=== PATIENT | female | born 1960 | race Caucasian/White ===

== ENCOUNTER → 2017-02-25 | Outpatient (CLI) | payer OTHER ==
[2017-02-25 12:18] LABS: BASO % 0.4 %; BASO ABS # 0.03 K/uL (0-0.2); COMPLETE YES; EOS % 1.7 %; HEMATOCRIT 38.1 % (37-47); IG% 0.1 %; LYMPH % 32.5 %; LYMPH ABS # 2.35 K/uL (1.2-3.4); MEAN CELL VOLUME 89.2 fL (80-100); MEAN CORPUSCULAR HEMOGLOBIN 30.2 pg (25-34); MEAN CORPUSCULAR HGB CONC 33.9 g/dl (32-36); MEAN PLATELET VOLUME 10.7 fL (7.4-10.4); MONO % 9.7 %; NEUT % 55.6 %; PLATELET COUNT 256 K/uL (130-400); RED BLOOD COUNT 4.27 M/uL (4.2-5.4); WHITE BLOOD COUNT 7.24 K/uL (4.8-10.8)
[2017-02-25 12:57] LABS: ALT/SGPT 39 U/L (12-78); AST/SGOT 18 U/L (15-37); BLOOD UREA NITROGEN 20 mg/dl (7-18); BUN/CREATININE RATIO 25.7 (10-20); CALCIUM 9.3 mg/dl (8.5-10.1); CARBON DIOXIDE 31 mmol/L (21-32); CHLORIDE 104 mmol/L (98-107); CREATININE 0.76 mg/dl (0.60-1.20); GLUCOSE 93 mg/dl (70-99); SODIUM 141 mmol/L (136-145)
[2017-02-25 13:08] LABS: ALB/GLOB RATIO 0.9 (0.9-2); ALKALINE PHOSPHATASE 80 U/L (45-117); CHOLESTEROL 199 mg/dl (0-200); CHOLESTEROL/HDL RATIO 4.1; HDL CHOLESTEROL 49 mg/dl; LDL CHOLESTEROL CALCULATED 107 mg/dl; THYROID STIMULATING HORMONE 0.434 uIu/ml (0.300-4.500); TRIGLYCERIDES 216 mg/dl (0-150); VERY LOW DENSITY LIPOPROT CALC 43 mg/dl
[2017-02-25 13:27] LABS: ESTIMATED AVERAGE GLUCOSE 128 mg/dl; HA1C FLAG Normal (Normal)
== END | disposition home or self-care (01) ==
LOC: C.LAB 11:45
PROVIDERS: ATTEND Internal Medicine
DX: E78.5 Hyperlipidemia, unspecified (principal)

== ENCOUNTER → 2017-02-28 | Outpatient (CLI) | payer OTHER ==
--- NOTE | 2017-03-02 17:08 | POLYSOMNOGRAPH REPORT ---
CLINICAL DATA: A 56-year-old female with BMI of 43, referred by Dr. Mainor Chowdary with symptoms of loud snoring and intermittent apnea. She does have fatigue. She is obese and has hypertension. On the evening of 02/28/2017, a home sleep apnea test was performed using a Porter + Sail type 3 monitor. RECORDING RESULTS: Total recording time was 10 hours. The patient's estimated sleep time and patient monitoring time was 8.6 hours. RESPIRATORY DATA: Mild sleep apnea was documented. The PRASHANT was 9.5. There were 8 obstructive and 1 central apneic episodes recorded. There were 73 hypopneic episodes. The longest respiratory event was 36 seconds. OXIMETRY DATA: Nocturnal hypoxemia was seen. The oxygen nik was 78%. Mean saturation was 92%. Time below 89% was 26 minutes. HEART RATE DATA: Heart rates ranged from 45-83 beats per minute. SNORING DATA: Loud snoring was recorded throughout the night. ART GILDER'S COMMENTS: The patient stated she slept off and on during the test; snoring was present throughout. Hypopneas and apneas were seen clustered in 2 episodes at 10:22-11:22 p.m. and at 3:30-4:30 a.m. These may have been periods of REM sleep. IMPRESSION: Mild sleep apnea/hypopnea with an respiratory event index of 9.5 with nocturnal hypoxemia. RECOMMENDATIONS: The patient may benefit from weight loss, use of an oral appliance, use of auto CPAP, or a repeat sleep study with CPAP titration. Clinical correlation is needed. [facility]
== END | disposition home or self-care (01) ==
LOC: C.NEUR 08:54
PROVIDERS: ATTEND Internal Medicine
DX: G47.33 Obstructive sleep apnea (adult) (pediatric) (principal)

== ENCOUNTER → 2017-12-18 | Outpatient (CLI) | payer OTHER ==
[2017-12-18 14:41] LABS: ALBUMIN 3.8 gm/dl (3.4-5.0); ALT/SGPT 35 U/L (12-78); AST/SGOT 17 U/L (15-37); BLOOD UREA NITROGEN 17 mg/dl (7-18); CALCIUM 9.6 mg/dl (8.5-10.1); CARBON DIOXIDE 29 mmol/L (21-32); CREATININE 0.87 mg/dl (0.60-1.20); GLUCOSE 108 mg/dl (70-99); POTASSIUM 4.1 mmol/L (3.5-5.1); SODIUM 139 mmol/L (136-145)
[2017-12-18 14:49] LABS: ALKALINE PHOSPHATASE 71 U/L (45-117); CHOLESTEROL 184 mg/dl (0-200); LDL CHOLESTEROL CALCULATED 100 mg/dl; TOTAL PROTEIN 7.9 gm/dl (6.4-8.2)
== END | disposition home or self-care (01) ==
LOC: C.LABMFLN 07:45
PROVIDERS: ATTEND Family Medicine
DX: R73.03 Prediabetes (principal); E78.5 Hyperlipidemia, unspecified; E03.9 Hypothyroidism, unspecified

== ENCOUNTER 2024-09-10 07:04 | Inpatient (IN) ==
--- NOTE | 2024-09-10 07:18 | Emergency Department Note ---
History of Present Illness General Chief complaint: Abdominal Pain Stated complaint: N/V, ABD PAIN Time Seen by Provider: 09/10/24 07:10 History of Present Illness Maximum Pain Intensity: 9 This is a 64-year-old female that presents to the emergency department via private vehicle with complaints of "lower abdominal pain". The patient notes that for the past 12 hours she has been experiencing lower abdominal pain. It is severe in nature. Current pain 9/10 and constant. She notes associated dry heaving. No fever. She notes the pain is across the lower abdomen. It is not favored to be on 1 side or the other. She states that she is able to lay on her left side but notes severe pain when she lays on her back or on her right side. Review of the EMR reveals patient does have a history of gastric bypass surgery, cholecystectomy, hysterectomy. Patient denies any urinary symptoms. Patient did not take any of her regular medications this morning. Home Medications Medication Instructions Recorded Confirmed Type albuterol sulfate 90 mcg/actuation 2 puffs inhalation Q4H PRN sob 01/08/20 09/10/24 History aerosol inhaler cetirizine 10 mg tablet (Zyrtec) 20 mg PO BID PRN allergies 04/25/23 09/10/24 History bupropion HCl 150 mg tablet,12 hr See Rx Instructions PO BID #270 ea 07/16/24 09/10/24 Rx sustained-release cyanocobalamin (vitamin B-12) 1,000 mcg IM Q3MO 07/16/24 09/10/24 History 1,000 mcg/mL injection solution naltrexone 50 mg tablet 25 mg PO BID 07/16/24 09/10/24 History fluticasone propionate 50 2 spray intranasal DAILY 09/10/24 09/10/24 History mcg/actuation nasal spray,suspension levothyroxine 175 mcg tablet 175 mcg PO DAILY 09/10/24 09/10/24 History rizatriptan 10 mg disintegrating 10 mg PO UD PRN Migraine Headache 09/10/24 09/10/24 History tablet Allergies Allergy/AdvReac Type Severity Reaction Status Date / Time clarithromycin [From Biaxin] Allergy Verified 07/16/24 15:52 codeine Allergy Verified 07/16/24 15:52 fluoxetine [From Prozac] Allergy Verified 07/16/24 15:52 sertraline [From Zoloft] Allergy Verified 07/16/24 15:52 Bbkrboy-FUU-BlJ Reductase Allergy Verified 07/16/24 15:52 Inhibitor [Zfwuhst-Bqy-Pjj Reductase Inhibitor] Past Med/Surg History Problem List (Updated 09/10/24 @ 09:55 by Eliu Correa PA-C) History of Terrence-en-Y gastric bypass (Acute) Small bowel obstruction (Acute) Cervical radicular pain Contact dermatitis Thoracic arthritis Left-sided chest pain Posterior chest pain Status post gastric bypass for obesity Angle-closure glaucoma, moderate stage (Acute) Arthritis of multiple sites (Acute) Asthma (Acute) Hypothyroidism (Acute) Migraine headache (Acute) Urticaria (Acute) History of sinus surgery Medical History Barretts esophagus Resolved s/p RYGB Essential hypertension Resolved s/p RYGB Gastroesophageal reflux disease Resolved s/p RYGB Hyperlipidemia Resolved s/p RYGB History of prediabetes Resolved s/p RYGB Surgical History History of hysterectomy History of cholecystectomy Family History Mother Coronary heart disease Diabetes Hypertension Father Hypertension Myocardial infarction Prostate cancer Sister Hypertension Denies family history of Ovarian cancer Breast cancer Lung cancer Colorectal cancer Social History Smoking Status: Former smoker Tobacco Type: Cigarettes Age Started Using Tobacco: 21; Age Quit Using Tobacco: 41; Cigarettes Per Day: 0.5 a week; Second Hand Exposure: No; Do You Dip or Chew Tobacco: No; Hx Alcohol Use: No Hx Substance Use: No Preferred Language: Omani Communication Ability: Effective Visual Impairment: Limited Hearing Ability: Normal Physiotherapist'S Assistant Required: No Beliefs That Will Affect Care: None marital status: Current Living Situation: Spouse current occupational status: employed How many Children do You have: 1 Other Information That Helps Us Care for You: No Feels Safe at Home: Yes Safety Concerns: Feels Safe At This Time Childhood Exposure to Second-Hand Smoke: Yes Diet: regular caffeine: Yes (coffee on saturdays and sundays ) Dental Care, Regularly: Yes Physical Activity Frequency: Daily Physical Activity Frequency Comment: WALK Seatbelt Use: always Sunscreen Use: Yes Assistive Devices: Glasses Review of Systems A total of 10 systems reviewed and were otherwise negative Physical Exam Vital Signs Vital Signs - 24 hr 09/10/24 07:06 09/10/24 08:06 09/10/24 08:23 Temperature 36.5 C Temperature Source Temporal Artery Scan Pulse Rate 76 58 L 57 L Pulse Rate from SpO2 Sensor 57 L Respiratory Rate 14 20 Blood Pressure 138/87 Blood Pressure Mean 104 Pulse Oximetry 99 99 Oxygen Delivery Method Room Air Room Air Sepsis New/Unexplained Change in Mental Status No Sepsis Action Taken by Nursing No Action Required 09/10/24 08:30 09/10/24 08:41 Temperature Temperature Source Pulse Rate 57 L Pulse Rate from SpO2 Sensor Respiratory Rate 19 Blood Pressure 143/83 H Blood Pressure Mean 108 Pulse Oximetry Oxygen Delivery Method Sepsis New/Unexplained Change in Mental Status Sepsis Action Taken by Nursing VITAL SIGNS - Vital signs and nursing notes were reviewed. Stable and afebrile. GENERAL -64-year-old female appearing her stated age who is in no acute distress but appears to be in pain. Communicates well with provider and answers questions appropriately. SKIN - Without rashes. No meningeal or petechial rash. HEAD - NC/AT. EYES - PERRL with EOMI bilaterally. Sclera anicteric. NECK - Neck with FROM. No nuchal rigidity. LUNGS - CTA CARDIAC - RRR ABDOMEN - Abdominal contour normal without pulsations or visible masses. BS normoactive all four quadrants. There is lower abdominal tenderness to palpation. No palpable masses, hepatosplenomegaly, or ascites noted. EXTREMITIES - No clubbing or peripheral cyanosis. +5/5 strength noted in UE/LE bilaterally. NEUROLOGIC - Cranial nerves grossly intact. PSYCH -alert, oriented and pleasant on exam Course Administered Medications Sodium Chloride (Nss) 1,000 mls @ 100 mls/hr IV .Q10H STA Stop: 09/10/24 18:33 Last Admin: 09/10/24 09:10 Dose: 125 mls/hr Documented By: MORENO Ondansetron HCl (Ondansetron Inj 2 Mg/Ml 2 Ml Vial) 4 mg IV Q4H PRN PRN Reason: Nausea Stop: 10/10/24 10:29 Last Admin: 09/10/24 10:54 Dose: 4 mg Documented By: SJR Discontinued Medications Acetaminophen (Ofirmev) 1,000 mg in 100 mls @ 400 mls/hr IV NOW STA Stop: 09/10/24 08:57 Last Infusion: 09/10/24 09:11 Dose: Infused Documented By: Admin: 09/10/24 08:47 Dose: 400 mls/hr Documented By: MORENO Ioversol (Optiray 320 100ml) 94 ml IV ONCE ONE Stop: 09/10/24 07:56 Last Admin: 09/10/24 07:55 Dose: 94 ml Documented By: REID Morphine Sulfate (Morphine Sulfate 4 Mg/Ml 1 Ml Carp\\Vial) 4 mg IV NOW STA Stop: 09/10/24 07:25 Last Admin: 09/10/24 07:29 Dose: 4 mg Documented By: MORENO Ondansetron HCl (Ondansetron Inj 2 Mg/Ml 2 Ml Vial) 4 mg IV NOW STA Stop: 09/10/24 07:18 Last Admin: 09/10/24 07:29 Dose: 4 mg Documented By: MORENO Medical Decision Making Laboratory Data 09/10/24 07:35 09/10/24 07:35 Lab Results 09/10/24 09/10/24 09/10/24 Range/Units 07:35 07:37 08:40 WBC 10.22 (4.8-10.8) K/ul RBC 4.29 (4.20-5.40) M/uL Hgb 13.2 (12.0-16.0) g/dl POC Hgb 13.6 (12.0-16.0) g/dl Hct 37.6 (37.0-47.0) % POC Hct 40 (37-47) % MCV 87.6 (80.0-100.0) fL MCH 30.8 (25.0-34.0) pg MCHC 35.1 (32.0-36.0) g/dL RDW Std Deviation 39.6 (36.4-46.3) fL RDW Coeff of Luiz 12.4 (11.5-14.5) % Plt Count 256 (130-400) K/uL MPV 11.3 (9.4-12.4) fL Immature Gran % (Auto) 0.2 % Neut % (Auto) 82.8 % Lymph % (Auto) 12.5 % [place] % (Auto) 4.3 % Eos % (Auto) 0.0 % Baso % (Auto) 0.2 % Neut # (Auto) 8.46 H (1.40-6.50) K/uL Lymph # (Auto) 1.28 (1.20-3.40) K/uL [place] # (Auto) 0.44 (0.11-0.59) K/uL Eos # (Auto) 0.00 (0.00-0.50) K/uL Baso # (Auto) 0.02 (0.00-0.20) K/uL Immature Gran # (Auto) 0.02 (0.01-0.20) K/uL POC Sodium 137 (135-144) mmol/L Sodium 136 (136-145) mmol/L POC Potassium 4.1 (3.3-5.0) mmol/L Potassium 4.1 (3.5-5.1) mmol/L POC Chloride 102 (101-112) mmol/L Chloride 103 (98-107) mmol/L Carbon Dioxide 24 (21-32) mmol/L POC Total CO2 21 L (24-31) mmol/L Anion Gap 9 (3-11) POC Anion Gap 20.0 (16-25) mmol/L POC BUN 12 (7-18) mg/dl BUN 12 (6-23) mg/dl Creatinine 0.76 (0.6-1.2) mg/dl POC Creatinine 0.8 (0.6-1.3) mg/dl Est Cr Clr Drug Dosing 84.1 ml/min eGFR 87.99 BUN/Creatinine Ratio 15.8 (10-20) Glucose 152 H (70-99(Fasting)) mg/dl POC Glucose (other) 153 H (70-99) mg/dl Lactate 2.0 (0.4-2.0) mmol/L Calcium 9.7 (8.6-10.3) mg/dl POC Ioniz Calcium Ronnie 1.19 (1.12-1.32) mmol/l Total Bilirubin 0.5 (0.2-1.0) mg/dl AST 27 (13-39) U/L ALT 37 (7-52) U/L Alkaline Phosphatase 77 (34-104) U/L Total Protein 7.7 (6.0-8.3) gm/dl Albumin 4.4 (3.4-5.0) gm/dl Globulin 3.3 (2.5-4.0) gm/dl Albumin/Globulin Ratio 1.3 (0.9-2) Lipase 23 (11-82) U/L Urine Color Yellow Urine Appearance Clear (Clear) Urine pH 8.5 H (4.5-7.5) Ur Specific Whitney 1.021 (1.000-1.030) Urine Protein 1+ H (Negative) Urine Glucose (UA) Negative (Negative) Urine Ketones Trace H (Negative) Urine Blood Negative (Negative) Urine Nitrite Negative (Negative) Urine Bilirubin Negative (Negative) Urine Urobilinogen Negative (Negative) Ur Leukocyte Esterase Trace H (Negative) Urine WBC (Auto) 0-5 (0-5) /hpf Urine RBC (Auto) 3-5 H (0-2) /hpf U Hyaline Cast (Auto) 0-2 (0-2) /lpf U Epithel Cells (Auto) 0-2 (0-2) /hpf Urine Bacteria (Auto) None Seen (None Seen) Imaging Data Radiologist's Impression: Abdomen/Pelvis CT 09/10/24 07:17 CT OF THE ABDOMEN AND PELVIS WITH CONTRAST CLINICAL HISTORY: Lower abdominal pain and nausea. COMPARISON STUDY: Small bowel follow-through September 23, 2011. TECHNIQUE: Following IV administration of 94 mL of Optiray, axial images of the abdomen and pelvis were obtained from the lung bases to the proximal femurs. Images were reviewed in the axial, sagittal, and coronal planes. IV contrast was administered without complication. Automated exposure control was utilized for the study. A dose lowering technique was utilized adhering to the principles of ALARA. CT DOSE: 1423.12 mGy.cm FINDINGS: Lung bases are unremarkable. No pneumatosis, free air or portal venous gas is present. There are calcified granulomas within the spleen. Several subcentimeter left renal lesions are too small to characterize but are probably benign. There is no biliary ductal dilatation status post cholecystectomy. The adrenal glands and pancreas are unremarkable. The right kidney is unremarkable. There is no hydronephrosis. There are postoperative findings consistent with Terrence-en-Y gastric bypass. The appendix is normal. Multiple loops of moderately dilated fluid-filled and stool-filled small bowel are present. This involves the mid to distal ileum. Transition point within the terminal ileum on image 263 of 490 is noted. Small bowel feces sign is present. A small to moderate amount of associated ascites is present. No bowel wall thickening. There is no lymphadenopathy. Major vasculature is patent. IMPRESSION: 1. Findings consistent with a moderate to high-grade small bowel obstruction with discrete transition point within the terminal ileum. Multiple loops of moderately dilated fluid-filled mid to distal ileum with small bowel feces sign. Associated ascites. No bowel wall thickening. No pneumatosis, free air or portal venous gas. 2. Status post Terrence-en-Y gastric bypass. ACT 112: Negative or not required by law. Electronically signed by: Rene Sosa M.D. 09/10/2024 8:11 AM KUB X-Ray 09/10/24 08:34 KUB CLINICAL HISTORY: NG tube assessment COMPARISON STUDY: CT of the abdomen and pelvis performed earlier today. FINDINGS: Tip of the nasogastric tube is within the body of the stomach. The tube is well-positioned. Incidental note is made of contrast within the collecting systems from recent contrast-enhanced CT. Small bowel dilatation is again noted. Incidental note is made of a calcified granuloma within the left lower lobe. IMPRESSION: 1. Appropriately positioned nasogastric tube. Tip within the body of the stomach. 2. Small bowel obstruction, as shown on CT. ACT 112: Negative or not required by law. Electronically signed by: Rene Sosa M.D. 09/10/2024 9:17 AM MDM Narrative Patient was seen and evaluated as above in room B02. Review was performed of triage nursing notes and vital signs. Patient presents today for assessment of abdominal pain. This is in the lower abdomen. She is tender on exam in the lower abdomen. She prefers to be in a flat position, laying on her left side. She notes dry heaving. Options of care were discussed with the patient. IV access with established. Labs are drawn. I did order a CT scan of the abdomen/pelvis. Furthermore, laboratory studies were ordered. Patient did want something for her pain and I discussed several options. Patient is status post gastric bypass therefore hold off on NSAIDs at the present time. Furthermore, she is also on naltrexone but did not have it today. At this time it is felt that IV morphine x 1 and IV Zofran x 1 is reasonable pending workup but will be cautious with additional opiates noting patient's current medication regimen. I-STAT was ordered to obtain expedited creatinine patient was sent straight to CT suite for a CT scan of the abdomen/pelvis. This was done with IV contrast. Oral contrast was not ordered as the patient is not tolerating p.o., noting dry heaving. CT scan did result. This notes moderate to high-grade small bowel obstruction. I then discussed this with general surgery at 8:25 a.m. I spoke with LIZ Howell. We agree with NG tube placement, and she will be down momentarily to assess the patient. Will proceed also with medical admission. I spoke with the hospitalist at 8:32 AM, Dr. Tamez. Patient does have continued abdominal pain. Will hold off on further opiates noting a bowel obstruction but also naltrexone. I will temporarily hold off on Toradol noting the patient history gastric bypass plus possible need for surgical intervention. Will proceed with IV Tylenol. This was ordered. Patient denies any issue with acetaminophen or recent administration. KUB ordered post NG tube placement to further assess. I reviewed the imaging. I also reviewed the formal radiology report as above revealing appropriately positioned NG tube. I did receive a phone call that the patient did have a slight dip in O2 into the high 80s. I immediately presented to bedside. Patient was resting comfortably in the examination bed and at that time had an O2 sat of 97%. The patient did not have any coughing. Will closely monitor for any signs of aspiration pneumonia or further hypoxia. Lungs clear to auscultation at time of repeat assessment. Patient will be admitted for further evaluation and management. Please refer to further documentation regarding her stay. GCS: 15 In the evaluation and treatment of this patient the following differential diagnoses were entertained: UTI, pyelonephritis, diverticulitis, perforated abdomen, bowel obstruction, appendicitis, among others Impression & Plan Small bowel obstruction, History of Terrence-en-Y gastric bypass Discharge Plan Visit Data Chief Complaint: Abdominal Pain Stated Complaint: N/V, ABD PAIN ED Provider: Florecita Hartman ED Midlevel Provider: Eliu Correa Discharge Problem: Small bowel obstruction, History of Terrence-en-Y gastric bypass Patient Disposition: Admitted As Inpatient Condition: Good Discharge Instructions Interventions: ED Discharge Assessment Last Done: 09/10/24 10:31
[2024-09-10] MEDS: ONDANSETRON INJ 2 MG/ML 2 ML VIAL IV STA (07:29)
[2024-09-10] MEDS: MoRPHine SULFATE 4 MG/ML 1 ML CARP\\VIAL IV STA (07:29)
[2024-09-10 07:50] LABS: iSTAT Creatinine 0.8 mg/dl (0.6-1.3); iSTAT Hemoglobin 13.6 g/dl (12.0-16.0); iSTAT Ionized Calcium 1.19 mmol/l (1.12-1.32); iSTAT Potassium 4.1 mmol/L (3.3-5.0)
[2024-09-10] MEDS: OPTIRAY 320 100ml IV ONE (07:55)
[2024-09-10 08:00] LABS: Basophils # (auto) 0.02 K/uL (0.00-0.20); Basophils % (auto) 0.2 %; Hematocrit (blood only) 37.6 % (37.0-47.0); Hemoglobin 13.2 g/dl (12.0-16.0); Immature Granulocytes # (auto) 0.02 K/uL (0.01-0.20); Immature Granulocytes % (auto) 0.2 %; Lymphocytes # (auto) 1.28 K/uL (1.20-3.40); Lymphocytes % (auto) 12.5 %; Mean Corpuscular Hemoglobin 30.8 pg (25.0-34.0); Mean Corpuscular Hgb Conc 35.1 g/dL (32.0-36.0); Mean Corpuscular Volume 87.6 fL (80.0-100.0); Mean Platelet Volume 11.3 fL (9.4-12.4); Monocytes # (auto) 0.44 K/uL (0.11-0.59); Monocytes % (auto) 4.3 %; Neutrophils # (auto) 8.46 K/uL (1.40-6.50); Neutrophils % (auto) 82.8 %; Platelet Count 256 K/uL (130-400); RDW Coefficient of Variation 12.4 % (11.5-14.5); RDW Standard Deviation 39.6 fL (36.4-46.3); Red Blood Count 4.29 M/uL (4.20-5.40); White Blood Count 10.22 K/ul (4.8-10.8)
[2024-09-10 08:03] LABS: Appearance Urine Clear (Clear); Bacteria Urine Automated None Seen (None Seen); Bilirubin Urine Negative (Negative); Blood Urine Negative (Negative); Cast Urine Automated 0-2 /lpf (0-2); Color Urine Yellow; Epithelial Cell Urine Auto 0-2 /hpf (0-2); Glucose Urine UA Negative (Negative); Ketones Urine Trace (Negative); Leukocyte Esterase Urine Trace (Negative); Nitrite Urine Negative (Negative); Protein Urine 1+ (Negative); Specific Gravity Urine 1.021 (1.000-1.030); Urobilinogen Urine Negative (Negative); WBC Urine Automated 0-5 /hpf (0-5); pH Urine 8.5 (4.5-7.5)
--- NOTE | 2024-09-10 08:13 | CT Scan Report ---
CT OF THE ABDOMEN AND PELVIS WITH CONTRAST CLINICAL HISTORY: Lower abdominal pain and nausea. COMPARISON STUDY: Small bowel follow-through September 23, 2011. TECHNIQUE: Following IV administration of 94 mL of Optiray, axial images of the abdomen and pelvis we re obtained from the lung bases to the proximal femurs. Images were reviewed in the axial, sagittal, and coronal planes. IV contrast was administered without complication. Automated exposure control wa s utilized for the study. A dose lowering technique was utilized adhering to the principles of ALARA . CT DOSE: 1423.12 mGy.cm FINDINGS: Lung bases are unremarkable. No pneumatosis, free air or portal venous gas is present. Ther e are calcified granulomas within the spleen. Several subcentimeter left renal lesions are too small to characterize but are probably benign. There is no biliary ductal dilatation status post cholecyste ctomy. The adrenal glands and pancreas are unremarkable. The right kidney is unremarkable. There is n o hydronephrosis. There are postoperative findings consistent with Terrence-en-Y gastric bypass. The appe ndix is normal. Multiple loops of moderately dilated fluid-filled and stool-filled small bowel are pr esent. This involves the mid to distal ileum. Transition point within the terminal ileum on image 263 of 490 is noted. Small bowel feces sign is present. A small to moderate amount of associated ascites is present. No bowel wall thickening. There is no lymphadenopathy. Major vasculature is patent. IMPRESSION: 1. Findings consistent with a moderate to high-grade small bowel obstruction with discrete transition point within the terminal ileum. Multiple loops of moderately dilated fluid-filled mid to distal ile um with small bowel feces sign. Associated ascites. No bowel wall thickening. No pneumatosis, free ai r or portal venous gas. 2. Status post Terrence-en-Y gastric bypass. ACT 112: Negative or not required by law. Electronically signed by: Rene Sosa M.D. 09/10/2024 8:11 AM
[2024-09-10 08:31] LABS: Albumin Globulin Ratio 1.3 (0.9-2); Albumin Level 4.4 gm/dl (3.4-5.0); BUN Creatinine Ratio 15.8 (10-20); Bilirubin,Total 0.5 mg/dl (0.2-1.0); Calcium 9.7 mg/dl (8.6-10.3); Creatinine Clr Calc Pharmacy 84.1 ml/min; Globulin 3.3 gm/dl (2.5-4.0); Potassium 4.1 mmol/L (3.5-5.1); Total Protein 7.7 gm/dl (6.0-8.3)
--- NOTE | 2024-09-10 08:40 | History & Physical Report ---
Date of Service September 10, 2024 Assessment & Plan (1) Small bowel obstruction: Plan: Worsening abdominal pain x 14+ hours. Mainly localized to the LLQ, but has generalized. Having episodes of N/V, w/o blood in emesis. - Admit - Hemodynamically stable - N.p.o. - CBC, CMP grossly WNL; UA without signs of infection - Lactate 2.0 - CTAP findings are consistent with moderate to high-grade small bowel obstruction discrete transition point of terminal ileum, multiple loops of moderately dilated fluid-filled mild to distal ileum small bowel feces sign, ascites, s/p Terrence-en-Y gastric bypass - NG tube placed, KUB shows appropriately places NGT - CBC, BMP a.m. - Continue NSS IVF - Acetaminophen 1g IV prn pain - Zofran 4mg IV prn N/V - General Surgery consulted Appreciate general surgery input and recs (2) History of Terrence-en-Y gastric bypass: Plan: S/p Terrence-en-Y gastric bypass - 2019 at [place] (3) Hypothyroidism: Plan: H/o hypothyroidism, stable - Most recent TSH 07/2024 @ 4.227 - On levothyroxine 175 mcg - continue Plan Dispo: Admit Diet: N.p.o. VTE Prophylaxis: Lovenox Code: Full Admission and Anticipated Discharge Date Admission Date: 09/10/2024 History of Present Illness Chief Complaint: Abdominal pain Primary Care Provider: Nikki Phan MD 64-year-old female presenting for worsening abdominal pain x 14+ hours. ED course: CBC grossly WNL with neutrophils 8.46, CMP grossly WNL with exception of glucose 152, pending lactate; UA with 1+ protein, trace ketones, trace LE, and RBC, but no bacteria present.; CTAP revealing findings consistent with moderate to high-grade small bowel obstruction discrete transition point in the terminal ileum, multiple loops of moderately dilated fluid-filled mid to distal ileum with small bowel feces sign, associated ascites, no bowel wall thickening, no pneumatosis, free air or portal venous gas, status post Terrence-en-Y gastric bypass.; Provided with Zofran, morphine, and IVF in ED. Patient is a 64-year-old female PMHx s/p Terrence-en-Y gastric bypass (2019), asthma, hypothyroidism, and history of migraines presenting for worsening abdominal pain. Patient states that the pain started at approximately 1930 the day prior to arrival and has continued to worsen. It came on as a sudden onset and has continued to worsen over that time. Pain at its worst is a 9 out of 10 on the pain scale, at time of visit it was a 7-8 out of 10, mainly localized to the lower abdomen, but has become generalized. Complaining of nausea/vomiting without blood in the vomit. Has not reported fever and no blood in stool. Never had this happen before. Please see Dr. Tamez's attestation for adjustments/additions to treatment plan. Allergies Allergy/AdvReac Type Severity Reaction Status Date / Time clarithromycin [From Biaxin] Allergy Verified 07/16/24 15:52 codeine Allergy Verified 07/16/24 15:52 fluoxetine [From Prozac] Allergy Verified 07/16/24 15:52 sertraline [From Zoloft] Allergy Verified 07/16/24 15:52 Obgotvj-UIX-DaM Reductase Allergy Verified 07/16/24 15:52 Inhibitor [Ihmwpoj-Afl-Oag Reductase Inhibitor] Home Medications Medication Instructions Recorded Confirmed Type albuterol sulfate 90 mcg/actuation 2 puffs inhalation Q4H PRN sob 01/08/20 09/10/24 History aerosol inhaler cetirizine 10 mg tablet (Zyrtec) 20 mg PO BID PRN allergies 04/25/23 09/10/24 History bupropion HCl 150 mg tablet,12 hr See Rx Instructions PO BID #270 ea 07/16/24 09/10/24 Rx sustained-release cyanocobalamin (vitamin B-12) 1,000 mcg IM Q3MO 07/16/24 09/10/24 History 1,000 mcg/mL injection solution naltrexone 50 mg tablet 25 mg PO BID 07/16/24 09/10/24 History fluticasone propionate 50 2 spray intranasal DAILY 09/10/24 09/10/24 History mcg/actuation nasal spray,suspension levothyroxine 175 mcg tablet 175 mcg PO DAILY 09/10/24 09/10/24 History rizatriptan 10 mg disintegrating 10 mg PO UD PRN Migraine Headache 09/10/24 09/10/24 History tablet Past Med/Surg History Problem List (Updated 09/10/24 @ 09:55 by Eliu Correa PA-C) History of Terrence-en-Y gastric bypass (Acute) Small bowel obstruction (Acute) Cervical radicular pain Contact dermatitis Thoracic arthritis Left-sided chest pain Posterior chest pain Status post gastric bypass for obesity Angle-closure glaucoma, moderate stage (Acute) Arthritis of multiple sites (Acute) Asthma (Acute) Hypothyroidism (Acute) Migraine headache (Acute) Urticaria (Acute) History of sinus surgery Medical History Barretts esophagus Resolved s/p RYGB Essential hypertension Resolved s/p RYGB Gastroesophageal reflux disease Resolved s/p RYGB Hyperlipidemia Resolved s/p RYGB History of prediabetes Resolved s/p RYGB Surgical History History of hysterectomy History of cholecystectomy Family History Mother Coronary heart disease Diabetes Hypertension Father Hypertension Myocardial infarction Prostate cancer Sister Hypertension Denies family history of Ovarian cancer Breast cancer Lung cancer Colorectal cancer Social History Smoking Status: Former smoker Tobacco Type: Cigarettes Age Started Using Tobacco: 21; Age Quit Using Tobacco: 41; Cigarettes Per Day: 0.5 a week; Second Hand Exposure: No; Do You Dip or Chew Tobacco: No; Hx Alcohol Use: No Hx Substance Use: No Preferred Language: Bulgarian Communication Ability: Effective Visual Impairment: Limited Hearing Ability: Normal Anesthesiologist Assistant Required: No Beliefs That Will Affect Care: None marital status: Current Living Situation: Spouse current occupational status: employed How many Children do You have: 1 Other Information That Helps Us Care for You: No Feels Safe at Home: Yes Safety Concerns: Feels Safe At This Time Childhood Exposure to Second-Hand Smoke: Yes Diet: regular caffeine: Yes (coffee on saturdays and sundays ) Dental Care, Regularly: Yes Physical Activity Frequency: Daily Physical Activity Frequency Comment: WALK Seatbelt Use: always Sunscreen Use: Yes Assistive Devices: Glasses Review of Systems Review of Systems: All systems reviewed & are unremarkable except as noted in Subjective Physical Exam Physical Exam: General: Hemodynamically stable; Appearing uncomfortable Skin: Warm and dry Head: Normocephalic, atraumatic Eyes: PERRL, conjunctivae clear, sclera non-icteric ENT: External ear and ear canal without swelling; nose atraumatic, NGT in nare; good dentition Neck: Supple, no LAD Cardio: RRR, no M/G/R, S1 and S2 normal Resp: Chest wall symmetric, normal respiratory effort; Lungs CTA in all lobes bilaterally, no wheezes, rales, or rhonchi Abdomen: Soft, symmetric, nontender; No masses or hepatosplenomegaly; BS norm oactive MSK: No deformities; pulses palpable and equal; no edema. Neuro: Awake, alert; Sensation intact bilaterally; CN intact Psych: Appropriate mood and affect is present in room at time of visit. Results & Data Results & Data Vital Signs (Past 12 Hours) Vital Signs Temp Pulse Resp BP Pulse Ox O2 Del Method 09/10/24 08:23 57 L 09/10/24 07:06 36.5 C 76 14 138/87 99 Room Air Laboratory Results 09/10/24 09/10/24 07:37 07:35 WBC 10.22 RBC 4.29 Hgb 13.2 POC Hgb 13.6 Hct 37.6 POC Hct 40 MCV 87.6 MCH 30.8 MCHC 35.1 RDW Std Deviation 39.6 RDW Coeff of Luiz 12.4 Plt Count 256 MPV 11.3 Immature Gran % (Auto) 0.2 Neut % (Auto) 82.8 Lymph % (Auto) 12.5 [place] % (Auto) 4.3 Eos % (Auto) 0.0 Baso % (Auto) 0.2 Neut # (Auto) 8.46 H Lymph # (Auto) 1.28 [place] # (Auto) 0.44 Eos # (Auto) 0.00 Baso # (Auto) 0.02 Immature Gran # (Auto) 0.02 POC Sodium 137 Sodium 136 POC Potassium 4.1 Potassium 4.1 POC Chloride 102 Chloride 103 Carbon Dioxide 24 POC Total CO2 21 L Anion Gap 9 POC Anion Gap 20.0 POC BUN 12 BUN 12 Creatinine 0.76 POC Creatinine 0.8 Est Cr Clr Drug Dosing 84.1 eGFR 87.99 BUN/Creatinine Ratio 15.8 Glucose 152 H POC Glucose (other) 153 H Calcium 9.7 POC Ioniz Calcium Ronnie 1.19 Total Bilirubin 0.5 AST 27 ALT 37 Alkaline Phosphatase 77 Total Protein 7.7 Albumin 4.4 Globulin 3.3 Albumin/Globulin Ratio 1.3 Lipase 23 Urine Color Yellow Urine Appearance Clear Urine pH 8.5 H Ur Specific [place] 1.021 Urine Protein 1+ H Urine Glucose (UA) Negative Urine Ketones Trace H Urine Blood Negative Urine Nitrite Negative Urine Bilirubin Negative Urine Urobilinogen Negative Ur Leukocyte Esterase Trace H Urine WBC (Auto) 0-5 Urine RBC (Auto) 3-5 H U Hyaline Cast (Auto) 0-2 U Epithel Cells (Auto) 0-2 Urine Bacteria (Auto) None Seen Diagnostic Findings Abdomen/Pelvis CT 09/10/24 07:17 CT OF THE ABDOMEN AND PELVIS WITH CONTRAST CLINICAL HISTORY: Lower abdominal pain and nausea. COMPARISON STUDY: Small bowel follow-through September 23, 2011. TECHNIQUE: Following IV administration of 94 mL of Optiray, axial images of the abdomen and pelvis were obtained from the lung bases to the proximal femurs. Images were reviewed in the axial, sagittal, and coronal planes. IV contrast was administered without complication. Automated exposure control was utilized for the study. A dose lowering technique was utilized adhering to the principles of ALARA. CT DOSE: 1423.12 mGy.cm FINDINGS: Lung bases are unremarkable. No pneumatosis, free air or portal venous gas is present. There are calcified granulomas within the spleen. Several subcentimeter left renal lesions are too small to characterize but are probably benign. There is no biliary ductal dilatation status post cholecystectomy. The adrenal glands and pancreas are unremarkable. The right kidney is unremarkable. There is no hydronephrosis. There are postoperative findings consistent with Terrence-en-Y gastric bypass. The appendix is normal. Multiple loops of moderately dilated fluid-filled and stool-filled small bowel are present. This involves the mid to distal ileum. Transition point within the terminal ileum on image 263 of 490 is noted. Small bowel feces sign is present. A small to moderate amount of associated ascites is present. No bowel wall thickening. There is no lymphadenopathy. Major vasculature is patent. IMPRESSION: 1. Findings consistent with a moderate to high-grade small bowel obstruction with discrete transition point within the terminal ileum. Multiple loops of moderately dilated fluid-filled mid to distal ileum with small bowel feces sign. Associated ascites. No bowel wall thickening. No pneumatosis, free air or portal venous gas. 2. Status post Terrence-en-Y gastric bypass. ACT 112: Negative or not required by law. Electronically signed by: Rene Sosa M.D. 09/10/2024 8:11 AM Supervising Physician Co-Signing Physician Notes The patient was seen by me. The chart was reviewed. Case discussed with JENAE Fay. Agree with assessment and plan PG Care Time/CCT Total # of Minutes Spent Total Time Spent with Patient: Total time spent is greater than 50% in coordination of care (as documented) at patient's floor/unit and/or counseling patient: Coding Level of Care Code 84719 INT INP/OBS CARE 2/55MIN Diagnoses Small bowel obstruction K56.609 History of Terrence-en-Y gastric bypass Z98.84 Hypothyroidism E03.9 Time Spent (min) 60
[2024-09-10] MEDS: ACETAMINOPHEN 1,000 MG/100 ML VIAL IV STA (08:47)
[2024-09-10] MEDS: SODIUM CHLORIDE 0.9% 1,000 ML IV STA (09:10)
--- NOTE | 2024-09-10 09:18 | XRay Report ---
KUB CLINICAL HISTORY: NG tube assessment COMPARISON STUDY: CT of the abdomen and pelvis performed earlier today. FINDINGS: Tip of the nasogastric tube is within the body of the stomach. The tube is well-positioned. Incidental note is made of contrast within the collecting systems from recent contrast-enhanced CT. Small bowel dilatation is again noted. Incidental note is made of a calcified granuloma within the le ft lower lobe. IMPRESSION: 1. Appropriately positioned nasogastric tube. Tip within the body of the stomach. 2. Small bowel obstruction, as shown on CT. ACT 112: Negative or not required by law. Electronically signed by: Rene Sosa M.D. 09/10/2024 9:17 AM
--- NOTE | 2024-09-10 09:40 | Surgery Consultation ---
Date of Consultation September 10, 2024 Assessment & Plan (1) Small bowel obstruction: 64 yo female with history of gastric bypass, cholecystectomy, and hysterectomy presented to ED with sudden onset of right lower abdominal pain with associated nausea and dry heaves. CT scan with moderate to high grade SBO with transition at terminal ileum. labs unremarkable and hemodynamically stable. NGT placed with minimal output. Abdomen tender in RLQ and LLQ with voluntary guarding but no peritonitis. soft, mildly distended. Lactate normal. Discussed with patient and imaging findings. Discussed initial conservative management with NGT for decompression, bowel rest, IV fluids, pain management and antiemetics as needed. Will follow closely. May require surgical intervention if no improvement in pain. Dr. Locke has seen and examined patient, see addendum for further recommendations/ plan. History of Present Illness Reason for Consultation: High grade SBO Requesting Physician: Eliu Correa PA-C Attending Physician: John Taemz MD History of Present Illness Jeanne is a 64 yo female with history of glaucoma, asthma, hypothyroidism, migraine headaches, urticaria, cervical radicular pain, who presented to ED with complaint of sudden onset of RLQ abdominal pain at 7:30 pm last evening with associated nausea and dry heaves. States she was feeling fine prior and had normal dinner. Had small soft but not loose bowel movements last night after pain started and passed small amount of gas. No prior history of SBO . History of laparoscopic Gastric bypass in 2019, cholecystectomy and hysterectomy. No blood thinning agents. ER work-up included labs which showed no leukocytosis, avss, and lactic acid normal at 2.0. CT scan of abdomen and pelvis with IV contrast showing moderate to high grade sbo with transition point at terminal ileum. Allergies Allergy/AdvReac Type Severity Reaction Status Date / Time clarithromycin [From Biaxin] Allergy Verified 07/16/24 15:52 codeine Allergy Verified 07/16/24 15:52 fluoxetine [From Prozac] Allergy Verified 07/16/24 15:52 sertraline [From Zoloft] Allergy Verified 07/16/24 15:52 Gdoducy-JHE-IeX Reductase Allergy Verified 07/16/24 15:52 Inhibitor [Vsdgelj-Njt-Doi Reductase Inhibitor] Home Medications Medication Instructions Recorded Confirmed Type albuterol sulfate 90 mcg/actuation 2 puffs inhalation Q4H PRN sob 01/08/20 09/10/24 History aerosol inhaler cetirizine 10 mg tablet (Zyrtec) 20 mg PO BID PRN allergies 04/25/23 09/10/24 History bupropion HCl 150 mg tablet,12 hr See Rx Instructions PO BID #270 ea 07/16/24 09/10/24 Rx sustained-release cyanocobalamin (vitamin B-12) 1,000 mcg IM Q3MO 07/16/24 09/10/24 History 1,000 mcg/mL injection solution naltrexone 50 mg tablet 25 mg PO BID 07/16/24 09/10/24 History fluticasone propionate 50 2 spray intranasal DAILY 09/10/24 09/10/24 History mcg/actuation nasal spray,suspension levothyroxine 175 mcg tablet 175 mcg PO DAILY 09/10/24 09/10/24 History rizatriptan 10 mg disintegrating 10 mg PO UD PRN Migraine Headache 09/10/24 09/10/24 History tablet Patient History Medical History Barretts esophagus Resolved s/p RYGB Essential hypertension Resolved s/p RYGB Gastroesophageal reflux disease Resolved s/p RYGB Hyperlipidemia Resolved s/p RYGB History of prediabetes Resolved s/p RYGB Surgical History History of hysterectomy History of cholecystectomy Family History Mother Coronary heart disease Diabetes Hypertension Father Hypertension Myocardial infarction Prostate cancer Sister Hypertension Denies family history of Ovarian cancer Breast cancer Lung cancer Colorectal cancer Social History Smoking Status: Former smoker Tobacco Type: Cigarettes Age Started Using Tobacco: 21; Age Quit Using Tobacco: 41; Cigarettes Per Day: 0.5 a week; Second Hand Exposure: No; Do You Dip or Chew Tobacco: No; Hx Alcohol Use: No Hx Substance Use: No Preferred Language: Serbian Communication Ability: Effective Visual Impairment: Limited Hearing Ability: Normal Poultry Tender Required: No Beliefs That Will Affect Care: None marital status: Current Living Situation: Spouse current occupational status: employed How many Children do You have: 1 Other Information That Helps Us Care for You: No Feels Safe at Home: Yes Safety Concerns: Feels Safe At This Time Childhood Exposure to Second-Hand Smoke: Yes Diet: regular caffeine: Yes (coffee on saturdays and sundays ) Dental Care, Regularly: Yes Physical Activity Frequency: Daily Physical Activity Frequency Comment: WALK Seatbelt Use: always Sunscreen Use: Yes Assistive Devices: Glasses Review of Systems Review of Systems: All systems reviewed & are unremarkable except as noted in HPI & below Physical Exam Constitutional: cooperative; no acute distress, not ill appearing, + uncomfortable and not diaphoretic Uncomfortable as NGT was just placed, currently dry heaving and nauseated. Respiratory: normal respiratory effort; no respiratory distress, no labored breathing and no retractions Cardiovascular: RRR, no murmur, no edema Gastrointestinal (Abdomen): Inspection/Auscultation: abdomen normal to inspection, + abdominal surgical scar (laparoscopic scar, transverse hysterectom y scar) and + hypoactive bowel sounds; abdomen not distended and + abnormal bowel sounds Percussion/Palpation: + abdomen tender (RLQ), + guarding (voluntary RLQ) and abdomen soft; abdomen not rigid and abdomen not firm no rebound or peritonitis Skin: no rashes, warm and dry Psychiatric: Orientation: alert and oriented x 3 Results & Data Vital Signs (Past 12 Hours) Vital Signs Temp Pulse Resp BP Pulse Ox O2 Del Method 09/10/24 08:23 57 L 09/10/24 07:06 36.5 C 76 14 138/87 99 Room Air Laboratory Results 09/10/24 09/10/24 09/10/24 Range/Units 08:40 07:37 07:35 WBC 10.22 (4.8-10.8) K/ul RBC 4.29 (4.20-5.40) M/uL Hgb 13.2 (12.0-16.0) g/dl POC Hgb 13.6 (12.0-16.0) g/dl Hct 37.6 (37.0-47.0) % POC Hct 40 (37-47) % MCV 87.6 (80.0-100.0) fL MCH 30.8 (25.0-34.0) pg MCHC 35.1 (32.0-36.0) g/dL RDW Std Deviation 39.6 (36.4-46.3) fL RDW Coeff of Luiz 12.4 (11.5-14.5) % Plt Count 256 (130-400) K/uL MPV 11.3 (9.4-12.4) fL Immature Gran % (Auto) 0.2 % Neut % (Auto) 82.8 % Lymph % (Auto) 12.5 % [place] % (Auto) 4.3 % Eos % (Auto) 0.0 % Baso % (Auto) 0.2 % Neut # (Auto) 8.46 H (1.40-6.50) K/uL Lymph # (Auto) 1.28 (1.20-3.40) K/uL [place] # (Auto) 0.44 (0.11-0.59) K/uL Eos # (Auto) 0.00 (0.00-0.50) K/uL Baso # (Auto) 0.02 (0.00-0.20) K/uL Immature Gran # (Auto) 0.02 (0.01-0.20) K/uL POC Sodium 137 (135-144) mmol/L Sodium 136 (136-145) mmol/L POC Potassium 4.1 (3.3-5.0) mmol/L Potassium 4.1 (3.5-5.1) mmol/L POC Chloride 102 (101-112) mmol/L Chloride 103 (98-107) mmol/L Carbon Dioxide 24 (21-32) mmol/L POC Total CO2 21 L (24-31) mmol/L Anion Gap 9 (3-11) POC Anion Gap 20.0 (16-25) mmol/L POC BUN 12 (7-18) mg/dl BUN 12 (6-23) mg/dl Creatinine 0.76 (0.6-1.2) mg/dl POC Creatinine 0.8 (0.6-1.3) mg/dl Est Cr Clr Drug Dosing 84.1 ml/min eGFR 87.99 BUN/Creatinine Ratio 15.8 (10-20) Glucose 152 H (70-99(Fasting)) mg/dl POC Glucose (other) 153 H (70-99) mg/dl Lactate 2.0 (0.4-2.0) mmol/L Calcium 9.7 (8.6-10.3) mg/dl POC Ioniz Calcium Ronnie 1.19 (1.12-1.32) mmol/l Total Bilirubin 0.5 (0.2-1.0) mg/dl AST 27 (13-39) U/L ALT 37 (7-52) U/L Alkaline Phosphatase 77 (34-104) U/L Total Protein 7.7 (6.0-8.3) gm/dl Albumin 4.4 (3.4-5.0) gm/dl Globulin 3.3 (2.5-4.0) gm/dl Albumin/Globulin Ratio 1.3 (0.9-2) Lipase 23 (11-82) U/L Urine Color Yellow Urine Appearance Clear (Clear) Urine pH 8.5 H (4.5-7.5) Ur Specific [place] 1.021 (1.000-1.030) Urine Protein 1+ H (Negative) Urine Glucose (UA) Negative (Negative) Urine Ketones Trace H (Negative) Urine Blood Negative (Negative) Urine Nitrite Negative (Negative) Urine Bilirubin Negative (Negative) Urine Urobilinogen Negative (Negative) Ur Leukocyte Esterase Trace H (Negative) Urine WBC (Auto) 0-5 (0-5) /hpf Urine RBC (Auto) 3-5 H (0-2) /hpf U Hyaline Cast (Auto) 0-2 (0-2) /lpf U Epithel Cells (Auto) 0-2 (0-2) /hpf Urine Bacteria (Auto) None Seen (None Seen) Diagnostic Findings CT OF THE ABDOMEN AND PELVIS WITH CONTRAST CLINICAL HISTORY: Lower abdominal pain and nausea. COMPARISON STUDY: Small bowel follow-through September 23, 2011. TECHNIQUE: Following IV administration of 94 mL of Optiray, axial images of the abdomen and pelvis were obtained from the lung bases to the proximal femurs. Images were reviewed in the axial, sagittal, and coronal planes. IV contrast was administered without complication. Automated exposure control was utilized for the study. A dose lowering technique was utilized adhering to the principles of ALARA. CT DOSE: 1423.12 mGy.cm FINDINGS: Lung bases are unremarkable. No pneumatosis, free air or portal venous gas is present. There are calcified granulomas within the spleen. Several subcentimeter left renal lesions are too small to characterize but are probably benign. There is no biliary ductal dilatation status post cholecystectomy. The adrenal glands and pancreas are unremarkable. The right kidney is unremarkable. There is no hydronephrosis. There are postoperative findings consistent with Terrence-en-Y gastric bypass. The appendix is normal. Multiple loops of moderately dilated fluid-filled and stool-filled small bowel are present. This involves the mid to distal ileum. Transition point within the terminal ileum on image 263 of 490 is noted. Small bowel feces sign is present. A small to moderate amount of associated ascites is present. No bowel wall thickening. There is no lymphadenopathy. Major vasculature is patent. IMPRESSION: 1. Findings consistent with a moderate to high-grade small bowel obstruction with discrete transition point within the terminal ileum. Multiple loops of moderately dilated fluid-filled mid to distal ileum with small bowel feces sign. Associated ascites. No bowel wall thickening. No pneumatosis, free air or portal venous gas. 2. Status post Terrence-en-Y gastric bypass. ACT 112: Negative or not required by law. KUB CLINICAL HISTORY: NG tube assessment COMPARISON STUDY: CT of the abdomen and pelvis performed earlier today. FINDINGS: Tip of the nasogastric tube is within the body of the stomach. The tube is well-positioned. Incidental note is made of contrast within the collecting systems from recent contrast-enhanced CT. Small bowel dilatation is again noted. Incidental note is made of a calcified granuloma within the left lower lobe. IMPRESSION: 1. Appropriately positioned nasogastric tube. Tip within the body of the stomach. 2. Small bowel obstruction, as shown on CT. Personally reviewed images independently and with radiologist Dr. Sosa
[2024-09-10] MEDS ORDERED: ALBUTEROL HFA 8 GM INHALER INH PRN (10:30)
[2024-09-10] MEDS ORDERED: ONDANSETRON INJ 2 MG/ML 2 ML VIAL IV PRN (10:30)
[2024-09-10] MEDS: ONDANSETRON INJ 2 MG/ML 2 ML VIAL IV PRN (10:54)
[2024-09-10] MEDS ORDERED: RIZATRIPTAN BENZOATE MLT 10 MG TAB PO PRN (10:56)
[2024-09-10] MEDS ORDERED: MoRPHine SULFATE 2 MG/ML CARP IV PRN (11:02)
[2024-09-10] MEDS: MoRPHine SULFATE 2 MG/ML CARP IV STA (11:50)
[2024-09-10] MEDS: ENOXAPARIN INJ 40 MG/0.4 ML SYR SQ SCH (11:52)
--- OUTSIDE RECORDS SUMMARY | 2024-09-10 13:18 | External Medical Summary | Summary of Care ---
Author Name Unknown Organization [facility] Address [address] [place] [address] Phone [phone] Care Team Providers Care Glass Beveler Name Role Phone Nikki Phan MD Primary Care Provide r Reason for Referral * Evaluate & Treat - Unlimited Visits (Within 10 days (routine)) - Pending Review Specialty Diagnoses / Procedures Referred By Contac t Referred To Contact Pain Management / Pain Medicine Diagnoses Radiculopathy, cervical region Nikki Phan MD [address] [place] [address] Referral ID Status Reason Start Date Expiration Date Visits Requested Visits Authorized [id number] Pending Review Specialty Services Required [phone] Question Answer Referral Priority Within 10 days (routine) Where should this appointment be scheduled? [facility] Reason for referral? Interventional Pain Management - (Injection) What condition is the patient being referred for? Cervical Radiculopathy What is the preferred location to have this test performed? [facility] Comments Radiculopathy cervical region, Appt request/medical notes scanned into patients chart under media tab on 07/30/24,mif Encounter Details Date Type Department Care Team (Late st Contact Info) Description 07/30/2024 Orders Only [facility], [facility] [address] [place] [address] Ext *DO NOT REMOVE THIS DEPARTMENT* [place] [id number] Request, External Referral Radiculopathy, cervical region* Allergies Active Allergy Reactions Criticality Noted Date Comments Clarithromycin 10/02/2007 Hives Codeine 06/21/2012 Stomach pain documented as of this encounter (statuses as of 07/30/2024) Medications Medication Sig Dispensed Refills Start Date End Date Status FLUTICASONE PROPIONATE 50 MCG/ACT NA SUSPIndications:in evening Administer into each nostril. Indications: in evening 3 07/21/2014 Active ADVAIR DISKUS 100-50 MCG/DOSE IN AEPBIndications:as needed Inhale by mouth. Indications: as needed 4 08/22/2014 Active RIZATRIPTAN BENZOATE 10 MG PO TBDP TAKE 1 TABLET AT ONSET OF HEADACHE-MAY REPEAT EVERY 2 HOURS NEEDED-MAS 3 IN 24 HOURS 4 09/09/2014 Active Levothyroxine Sodium 200 MCG Oral Tablet 1 tab daily Active Nystatin powder Apply to abdomen as needed. 1 Bottle 2 11/14/2018 Active Calcium Citrate-Vitamin D 500-400 MG-UNIT CHEW Take 2 Tablets by mouth in the morning and 2 Tablets before bedtime. 05/23/2019 Active Cholecalciferol (VITAMIN D) 1000 units Tablet Take 1 Tablet by mouth in the morning. 05/23/2019 Active Childrens Chewable Vitamins Oral Tablet Chewable Take 1 Tablet by mouth in the morning and 1 Tablet before bedtime. Active Dodex 1000 MCG/ML Injection Solution (vitamin b-12) INJECT 1 ML INTO LARGE MUSCLE EVERY 3 MONTHS 1 mL 5 08/18/2023 Active Syringe Luer Lock 25G X 5/8" 3 ML For vitamin B12 injections 4 Each 08/18/2023 Active buPROPion HCl ER (SR) 150 MG Oral Tablet Extended Release 12 Hour (Wellbutrin SR) TAKE 1 TABLET BY MOUTH IN THE MORNING AND BEFORE BEDTIME 180 Tablet 1 04/10/2024 Active Naltrexone HCl 50 MG Oral Tablet (Revia) Take 0.5 Tablets by mouth in the morning and 0.5 Tablets in the evening. 90 Tablet 1 04/10/2024 Active documented as of this encounter (statuses as of 07/30/2024) Active Problems Problem Noted Date Diagnosed Date S/P gastric bypass 11/14/2018 SANDRA (obstructive sleep apnea) 07/05/2018 Prediabetes 07/05/2018 Mixed hyperlipidemia 07/05/2018 Essential hypertension 07/05/2018 History of malignant melanoma of skin 10/23/2017 Overview: left mid back 06/27 0.35mm History of nonmelanoma skin cancer 10/23/2017 Overview: BCC left back 10/30 BCC left posterior shoulder 10/30 dysplastic compound nevus,lt breast medial 10/0110/12/2002 dysplastic compound nevus,lt breast lateral 09/1510/12/2002 intradermal nevus,crown 10/01/02 10/12/2002 dysplastic compound nevus, rt arm 03/13/022001 Allergic rhinitis Chronic sinusitis Chronic ethmoidal sinusitis Chronic maxillary sinusitis Other diseases of nasal cavity and sinuses(478.1 9) Deviated nasal septum Hypertrophy of nasal turbinates Chronic pharyngitis Reflux esophagitis documented as of this encounter (statuses as of 07/30/2024) Resolved Problems Problem Noted Date Diagnosed Date Resolved Date Obesity, Class II, BMI 35-39 .9, isolated (see actual BMI) 09/27/2018 01/03/2019 Type 2 diabetes mellitus wit h hemoglobin A1c goal of less than 7.0% 07/05/2018 07/05/2018 Severe obesity with body mas s index (BMI) of 35.0 to 39.9 with serious comorbidity 07/05/2018 Overview: ICD-10 update of inactive diagnosis Allergic rhinitis 11/20/2008 Overview: Resolved per Duplicate Protocol #2. Chronic sinusitis 11/20/2008 Overview: Resolved per Duplicate Protocol #2. Hypertrophy of nasal turbinates 11/20/2008 Overview: Resolved per Duplicate Protocol #2. documented as of this encounter (statuses as of 07/30/2024) Social History Tobacco Use Types Packs/Day Years Used Date Smoking Tobacco: Former Cigarettes Q uit: 10/16/1985 Smokeless Tobacco: Never Alcohol Use Standard Drinks/Week Comments No 0 (1 standard drink = 0.6 oz pur e alcohol) Utilities Answer Date Recorded Do you have trouble paying y our heating, water, or electric bill? (Adult - for ages 18 years and over) Not on file 04/02/2024 Is your family able to pay t he heat, water, or electric bill? (Household - for ages 0-17 years) Not on file 04/02/2024 Does your family have access to good internet? (Household - for ages 0-17 years) Not on file 04/02/2024 Social Connections Answer Date Recorded How often do you feel lonely or isolated from those around you? (Adult - for ages 18 years and over) Not on file 04/02/2024 Sex and Gender Information Value Date Recorded Sex Assigned at Not on file Gender Identity Not on file Sexual Orientation Not on file Job Start Date Occupation Industry Not on file Not on file Not on file documented as of this encounter Functional Status Functional Status Response Date of Assess ment Are you deaf or do you have serious difficulty h earing? No 10/31/2018 Are you blind or do you have serious difficulty seeing, even when wearing glasses? No 10/31/2018 Do you have serious difficul ty walking or climbing stairs? (5 years old or older) No 10/31/2018 Do you have difficulty dress ing or bathing? (5 years old or older) No 10/31/2018 Because of a physical, menta l, or emotional condition, do you have difficulty doing errands alone such as visiting a doctor s office or shopping? (15 years old or older) No 10/31/19 19 Cognitive Status Response Date of Assessm ent Because of a physical, menta l, or emotional condition, do you have serious difficulty concentrating, remembering, or making decisions? (5 years old or older) No 10/31/2018 documented as of this encounter Plan of Treatment Upcoming Encounters Date Type Department Care Team (Late st Contact Info) Description 09/30/2024 3:40 PM EST Office Visit Nutrition & Weight Management, [facility] [address] [address] Dina Orozco PA-C [address] [id number] 01/02/2025 4:00 PM EDT Office Visit Dermatology [facility] [address] [place] [address] Yaquelin Kumar MD [address] [facility] [place] [address] Scheduled Procedures Name Priority Associated Diagnoses Date/Ti me ESOPHAGOGASTRODUODENOSCOPY ( EGD), FLEXIBLE, TRANSORAL, DIAGNOSTIC Recall Greer esophagus COLONOSCOPY FLEXIBLE PROXIMAL DIAGNOSTIC Recall History of colon polyps Scheduled Referrals Name Type Priority Associated Diagnoses Orde r Schedule PAIN MEDICINE REFERRAL OP Referral Within 10 days (routine) Radiculopathy, cervical region Ordered: 07/30/2024 Health Maintenance Due Date Last Done Comments Pneumococcal Vaccine: Pediatrics (0 to 5 Years) and At-Risk Patients (6 to 64 Years) (1 of 2 - PCV) 1967 Depression Screening 1973 HIV Screening 1976 Albumin/Creatinine Ratio 1979 Hepatitis C Screening 1979 DTap/Tdap Vaccines (1 - Tdap) 1980 Cologuard 2006 Fecal Occult Blood Test 2006 Sigmoidoscopy 2006 HbA1c 08/10/2023 08/10/2022, 11/0 06/2021, 10/03/2019, Additional history exists TSH 08/10/2023 08/10/2022, 11/0 06/2021, 04/12/2019, Additional history exists Mammogram 06/14/2024 06/14/2023, 05/17, 12/29/2021, Additional history exists COVID-19 Vaccine ( season) 2024 04/06/2022, 01/04/2021, 12/14/2020 Influenza Vaccine (FLU shot) (#1) 2024 09/24/2020 GFR 09/18/2024 09/18/2023, 07/17, 08/24/2021, Additional history exists Colonoscopy 12/02/2024 12/02/2019, 11/16, 09/29/2014, Additional history exists Colorectal Cancer Screening 12/02/2024 Lipid Panel 08/24/2026 08/24/2021, 09/15, 04/12/2019, Additional history exists RETIRED - COLONOSCOPY-EVERY 5 YRS AGES 18-100 Discontinued 12/02/2019, 12/02/2019, 09/29/2014, Additional history exists Zoster Vaccines Completed 07/14/2023, 04/25/2023 Diabetic Eye Exam Discontinued 07/17/2023 HPV (Gardasil) Vaccine Aged Out No lo nger eligible based on patient's age to complete this topic Hepatitis B Vaccine Aged Out No longe r eligible based on patient's age to complete this topic MENINGOCOCCAL (MENACTRA/MENVEO) Aged Out No longer eligible based on patient's age to complete this topic documented as of this encounter Medical Devices Not on filedocumented as of this encounter Visit Diagnoses Diagnosis Radiculopathy, cervical region- Primary Brachial neuritis or radiculitis nos documented in this encounter Advance Directives * Full Code (Latest Code Status on File) Date Activated Date Inactivated Comments 10/31/2018 12:58 PM 11/01/2018 3:31 PM This order reflects the patients wishes and were consensually agreed upon. * Full Code Date Activated Date Inactivated Comments 10/31/2018 7:10 AM 10/31/2018 12:58 PM This order reflects the patients wishes and were consensually agreed upon. Care Teams Glass Beveler Relationship Specialty Start Date End Date Nikki Phan MD [address] [place] [address] PCP - General Internal Medicine 07/21/23 documented as of this encounter
--- OUTSIDE RECORDS SUMMARY | 2024-09-10 13:18 | External Medical Summary | Summary of Care ---
Author Name Unknown Organization [facility] Address [address] [place] [address] Phone [phone] Care Team Providers Care Independent Crop Consultant Name Role Phone Nikki Phan MD Primary Care Provide r Reason for Referral * Precert (Within 10 days (routine)) - Pending Review Specialty Diagnoses / Procedures Referred By Contac t Referred To Contact Pain Medicine Diagnoses Cervical spondylosis Procedures C-/T-SPINE PARAVERTEBRAL FACET INJ,3 LEVELS Benny Knott MD [address] [place] [address] Referral ID Status Reason Start Date Expiration Date V isits Requested Visits Authorized [id number] Pending Review 08/19/2024 999 999 * Precert (Within 10 days (routine)) - Pending Review Specialty Diagnoses / Procedures Referred By Contac t Referred To Contact Pain Medicine Diagnoses Cervical radiculopathy Cervical spondylosis Procedures C-/T-SPINE PARAVERTEBRAL FACET INJ,2 LEVELS Benny Knott MD [address] [place] [address] Referral ID Status Reason Start Date Expiration Date V isits Requested Visits Authorized [id number] Pending Review 08/19/2024 999 999 * Precert (Within 10 days (routine)) - Pending Review Specialty Diagnoses / Procedures Referred By Contac t Referred To Contact Pain Medicine Diagnoses Cervical radiculopathy Cervical spondylosis Procedures C-/T-SPINE PARAVERTEBRAL FACET INJ, 1 LEVEL Benny Knott MD [address] [place] [address] Referral ID Status Reason Start Date Expiration Date V isits Requested Visits Authorized [id number] Pending Review 08/19/2024 999 999 * Precert (Within 10 days (routine)) - Pending Review Specialty Diagnoses / Procedures Referred By Contac t Referred To Contact Pain Medicine Diagnoses Cervical radiculopathy Cervical spondylosis Procedures C-/T-SPINE PARAVERTEBRAL FACET INJ,3 LEVELS Benny Knott MD [address] [place] [address] Referral ID Status Reason Start Date Expiration Date V isits Requested Visits Authorized [id number] Pending Review 08/19/2024 999 999 * Precert (Within 10 days (routine)) - Pending Review Specialty Diagnoses / Procedures Referred By Contac t Referred To Contact Pain Medicine Diagnoses Cervical radiculopathy Cervical spondylosis Procedures C-/T-SPINE PARAVERTEBRAL FACET INJ,2 LEVELS Benny Knott MD [address] [place] [id number] Referral ID Status Reason Start Date Expiration Date V isits Requested Visits Authorized [id number] Pending Review 08/19/2024 999 999 * Precert (Within 10 days (routine)) - Pending Review Specialty Diagnoses / Procedures Referred By Contac t Referred To Contact Pain Medicine Diagnoses Cervical radiculopathy Cervical spondylosis Procedures C-/T-SPINE PARAVERTEBRAL FACET INJ, 1 LEVEL Benny Knott MD [address] [place] [address] Referral ID Status Reason Start Date Expiration Date V isits Requested Visits Authorized [id number] Pending Review 08/19/2024 999 999 * Precert (Within 10 days (routine)) - Pending Review Specialty Diagnoses / Procedures Referred By Contac t Referred To Contact Radiology Diagnoses Cervical radiculopathy Cervical spondylosis Procedures MRI C SPINE WO CONTRAST Benny Knott MD [address] [place] [address] Referral ID Status Reason Start Date Expiration Date V isits Requested Visits Authorized [id number] Pending Review 08/19/2024 999 999 Reason for Visit * Reason Comments Neck Pain * Evaluate & Treat - Unlimited Visits (Within 10 days (routine)) - Pending Review Specialty Diagnoses / Procedures Referred By Paula escobar Referred To Contact Pain Management / Pain Medicine Diagnoses Radiculopathy, cervical region Nikki Phan MD [address] [place] [address] Referral ID Status Reason Start Date Expiration Date Visits Requested Visits Authorized [id number] Pending Review Specialty Services Required [phone] Encounter Details Date Type Department Care Team (Late st Contact Info) Description 08/19/2024 8:00 AM EST Office Visit [facility], [address] [address] Benny Knott MD [address] [place] [address] Cervical radiculopathy*; Cervical spondylosis Allergies Active Allergy Reactions Criticality Noted Date Comments Clarithromycin 10/02/2007 Hives Codeine 06/21/2012 Stomach pain documented as of this encounter (statuses as of 08/19/2024) Medications Medication Sig Dispensed Refills Start Date [...] as of this encounter (statuses as of 08/19/2024) Active Problems Problem Noted Date Diagnosed Date [...] as of this encounter (statuses as of 08/19/2024) Resolved Problems Problem Noted Date Diagnosed Date [...] as of this encounter (statuses as of 08/19/2024) Social History Tobacco Use Types Packs/Day Years [...] No 10/31/2018 documented as of this encounter Progress Notes * Benny Knott MD - 08/19/2024 8:18 AM EST Subjective: Thank you for the opportunity to see your patient. As you know Jeanne Flores is a 64 year old female who presents to our clinic with a chief complaint of Neck Pain She is a longstanding patient of Dr. Luna until 2013. States he first hurt her neck in after lifting a heavy object. States presently neck pain with radiation to the left shoulder and with associated headaches that radiate to the occiput. There is also a burning sensation into the left arm. Symptoms worsen when sitting at a computer all day for work. No meaningful relief with chiropractic manipulation, massage, heat, tylenol. Has been performing HEP with [facility]rab[facility] for at least 6 months. Last did PT about 10 years ago and it was not helpful. Denies progressive motor weakness or numbness. No saddle anesthesia. The patient is is able to do their ADLs. Providers: PCP: Nikki Phan MD Referring provider: Nikki Phan* Investigations performed: None since 2013. Medications and Allergies: Current Outpatient Medications Medication Instructions ADVAIR DISKUS 100-50 MCG/DOSE IN AEPB Inhale by mouth. Indications: as needed buPROPion HCl ER (SR) 150 MG Oral Tablet Extended Release 12 Hour (Wellbutrin SR) TAKE 1 TABLET BY MOUTH IN THE MORNING AND BEFORE BEDTIME Calcium Citrate-Vitamin D 500-400 MG-UNIT CHEW 2 Tablets, Oral, BID (.AM/PM) Childrens Chewable Vitamins Oral Tablet Chewable 1 Tablet, Oral, BID (.AM/PM) Dodex 1000 MCG/ML Injection Solution (vitamin b-12) INJECT 1 ML INTO LARGE MUSCLE EVERY 3 MONTHS FLUTICASONE PROPIONATE 50 MCG/ACT NA SUSP Administer into each nostril. Indications: in evening Levothyroxine Sodium 200 MCG Oral Tablet 1 tab daily naltrexone (REVIA) 25 mg, Oral, BID (0700,1900) Nystatin powder Apply to abdomen as needed. RIZATRIPTAN BENZOATE 10 MG PO TBDP TAKE 1 TABLET AT ONSET OF HEADACHE-MAY REPEAT EVERY 2 HOURS NEEDED-MAS 3 IN 24 HOURS Syringe Luer Lock 25G X 5/8" 3 ML For vitamin B12 injections Vitamin D 1,000 Units, Oral, Daily(AM) Review of patient's allergies indicates: Allergen Reactions Clarithromycin Hives Codeine Stomach pain Past Medical History: Past Medical History: Diagnosis Date Allergic rhinitis Chronic ethmoidal sinusitis Chronic maxillary sinusitis Chronic pharyngitis Chronic sinusitis Deviated nasal septum dysplastic compound nevus- L breast medial, lateral 09/16 Hypertrophy of nasal turbinates Other diseases of nasal cavity and sinuses(478.19) Reflux esophagitis Past Surgical History: Past Surgical History: Procedure Laterality Date COLONOSCOPY, DIAGNOSTIC (RECTUM) 09/29/2014 adenomatous polyps, repeat 5 yrs/COLONOSCOPY FLEXIBLE PROXIMAL DIAGNOSTIC performed by Ricky Perla MD at ENDOS[facility] COLONOSCOPY, DIAGNOSTIC (RECTUM) 12/02/2019 adenomatous polyp, repeat 5 yrs / COLONOSCOPY FLEXIBLE PROXIMAL DIAGNOSTIC performed by Ricky Perla MD at ENDOSCOPY [facility] CT SINUSES WO CONTRAST 04/20/2007 Suspected large retention cyst occupying nearly the entire right maxilalry sinus. Mild mucosal thickening involving the left maxilalry sinus. minimal thicening involving several ethmoid septa. the osteomeatal units appear patent. EGD, FLEXIBLE, DIAGNOSTIC 09/29/2014 refux esophagitis/ESOPHAGOGASTRODUODENOSCOPY (EGD), FLEXIBLE, TRANSORAL, DIAGNOSTIC performed by Ricky Perla MD at ENDOSCOPY [facility] EGD, FLEXIBLE, DIAGNOSTIC N/A 08/10/2018 small sliding hiatal hernia/biopsies confirm Greer's esopahgitis/recall 3 years/ESOPHAGOGASTRODUODENOSCOPY (EGD), FLEXIBLE, TRANSORAL, DIAGNOSTIC performed by Soham Culp MD at ENDOSCOPY [facility] EGD, FLEXIBLE, DIAGNOSTIC N/A 10/31/2018 ESOPHAGOGASTRODUODENOSCOPY (EGD), FLEXIBLE, TRANSORAL, DIAGNOSTIC performed by Jon Almanzar MD at [place] [facility] EGD, FLEXIBLE, DIAGNOSTIC N/A 08/14/2023 biopsies normal/recall 3 years/ESOPHAGOGASTRODUODENOSCOPY (EGD), FLEXIBLE, TRANSORAL, DIAGNOSTIC performed by Ricky Perla MD at ENDOSCOPY [facility] HYSTERECTOMY, LAP, SUPRACERV 2002 INJECTION CERVICAL/THORACIC 08/25/2014 INJECTION SPINE LUMBAR CERVICAL OR THORACIC performed by [facility] Luna DO at [facility] INJECTION CERVICAL/THORACIC 09/08/2014 INJECTION SPINE LUMBAR CERVICAL OR THORACIC performed by Dominick Luna DO at OR [facility] REMOVE GALLBLADDER 2000 REMOVE STOMACH, PARTIAL N/A 10/31/2018 ROBOTIC GASTRECTOMY PARTIAL performed by Jon Almanzar MD at [facility] [address] SINUS SURGERY PROCEDURE NEC 06/07/2007 Dr. Patel- submucous resection of middle turbinates bilaterally and coblation of inferior turbinates bilaterally and endoscopic bilateral maxillary antrostomies with tissue removal and bilateral partial ethmoidectomies. Family History: Family History Problem Relation Name Age of Onset Cancer Mother melanoma Diabetes Mother Hypertension Mother Hypertension Father Social History: Social History Socioeconomic History Marital status: Spouse name: Jon Number of children: 1 Years of education: Not on file Highest education level: Not on file Occupational History Occupation: [employer] Employer: [employer] Tobacco Use Smoking status: Former Current packs/day: 0.00 Types: Cigarettes Quit date: 10/16/1985 Years since quittin.8 Smokeless tobacco: Never Substance and Sexual Activity Alcohol use: No Drug use: No Sexual activity: Not on file Other Topics Concern Not on file Social History Narrative Not on file Social Determinants of Health Financial Resource Strain: Not on file Food Insecurity: Not on file Transportation Needs: Not on file Social Connections: Unknown (04/02/2024) Social Connections How often do you feel lonely or isolated from those around you? (Adult - for ages 18 years and over): Not on file Housing Stability: Not on file ROS: A comprehensive ROS was peformed and negative except as stated above. Objective: There were no vitals filed for this visit. GENERAL APPEARANCE: Well-developed, well-nourished, in no acute distress. HEENT: Normocephalic and atraumatic. No scleral icterus. Pupils are equal.No conjunctival injectionis noted. LUNGS: Symmetric. No wheezes, rhonchi, or rales appreciated HEART: Regular rate and rhythm. ABDOMEN: Non-tender, non-distended. Bowel sounds are present. EXTREMITIES: No cyanosis, clubbing, or edema. NEUROLOGIC: Gait is normal. Cranial nerves II through XII are grossly intact. PSYCHIATRIC: The patient is awake, alert, and oriented x3. Appropriate mood and affect. SKIN: Warm, dry, and well perfused. Good turgor. No lesions, nodules or rashes are noted on exposedskin. MSK: Upon initial assessment, the patient is seated in a comfortable position. Upon inspection there is not scoliosis of the thoracolumbar spine. Muscle bulk appears adequate. ROM cervical spine is not limited and is grossly intact at the shoulder, elbow, wrist, and thoracicspine. Motor strength exam reveals: Shoulder abduction R 5/5, L 5/5 Biceps flexion R 5/5, L 5/5 Triceps extension R 5/5, L 5/5 Wrist extension R 5/5, L 5/5 Wrist flexion R 5/5, L 5/5 Finger abduction R 5/5, L 5/5 Deep tendon reflexes: 2+ biceps, 2+ Triceps. Palpation does reveal midline cervical tenderness; does cervical paraspinous tenderness. TTP cervical facet column on the left. Increased pain with cervical translation. Sensory exam is intact to light touch and sharp stimulation grossly in the bilateral upper and lower extremities. Assessment: 64 year old year-old female presents with: Symptomatic cervical facet arthropathy, L>R. Cannot completely rule our proximal radicular symptoms when considering prior relief with MOY. Plan: Investigations: - MRI cervical spine Interventions: - Schedule diagnostic CMBB L TON, C3, C4 and C5 in anticipation of RFA Follow Up: - For procedure Thank you for you allowing us to participate in the care of your patient. If you have any questions, please feel free to contact us. documented in this encounter Nursing Notes * Silvana Marinelli LPN - 08/19/2024 8:12 AM EST Patient here for neck pain and left shoulder burning sensation, increased headaches and dizzy episodes Last MOY ws 2013 MRI in chart from 2013 No new PT, didn't help in past Sees chiro and massage therapy monthly documented in this encounter Plan of Treatment Upcoming Encounters Date Type Department Care Team (Latest Contact Info) Description 08/26/2024 5:00 PM EST [facility] [place] [facility] [address] [place] [address] 09/30/2024 3:40 PM EST Office Visit Nutrition & Weight Management, [facility] [address] [place] [address] Dina Orozco PA-C [address] [place] [address] 10/17/2024 1:30 PM EST Telemedicine Interventional Pain Center, [facility] [address] [address] Ca Marquez PA-C [address] [place] [address] 11/18/2024 2:35 PM EST Hospital Encounter [facility] [address] [place] [address] Carlos Bhatia, DO [address] [place] [address] 11/18/2024 2:35 PM EST - 11/18/2024 3:00 PM EST Surgery [facility], Operating [facility] [address] [place] [address] Carlos Bhatia, DO [address] [place] [address] C-/T-SPINE PARAVERTEBRAL FACET INJ, 1 LEVEL 12/02/2024 1:45 PM EST Hospital Encounter [facility], Operating [facility] [address] [place] [address] Carlos Bhatia, DO [address] [place] [address] 12/02/2024 1:45 PM EST - 12/02/2024 2:10 PM EST Surgery [facility], Operating [facility] [address] [place] [address] Carlos Bhatia, DO [address] [place] [address] C-/T-SPINE PARAVERTEBRAL FACET INJ, 1 LEVEL 01/02/2025 4:00 PM EDT Office Visit Dermatology [facility] [address] [facility] [place], [place] [address] Yaquelin Kumar MD [address] [place] [address] Scheduled Orders Name Type Priority Associated Diagnoses Orde r Schedule MRI C SPINE WO CONTRAST Medical Imaging Routine Cervical radiculopathy Cervical spondylosis Ordered: 08/19/2024 C-/T-SPINE PARAVERTEBRAL FACET INJ, 1 LEVEL Procedures Routine Cervical radiculopathy Cervical spondylosis Ordered: 08/19/2024 C-/T-SPINE PARAVERTEBRAL FACET INJ,2 LEVELS Procedures Routine Cervical radiculopathy Cervical spondylosis Ordered: 08/19/2024 C-/T-SPINE PARAVERTEBRAL FACET INJ,3 LEVELS Procedures Routine Cervical radiculopathy Cervical spondylosis Ordered: 08/19/2024 C-/T-SPINE PARAVERTEBRAL FACET INJ, 1 LEVEL Procedures Routine Cervical radiculopathy Cervical spondylosis Ordered: 08/19/2024 C-/T-SPINE PARAVERTEBRAL FACET INJ,2 LEVELS Procedures Routine Cervical radiculopathy Cervical spondylosis Ordered: 08/19/2024 C-/T-SPINE PARAVERTEBRAL FACET INJ,3 LEVELS Procedures Routine Cervical spondylosis Ordered: 08/19/2024 Scheduled Procedures Name Priority Associated Diagnoses Date/Ti me C-/T-SPINE PARAVERTEBRAL FAC ET INJ, 1 LEVEL Cervical spondylosis without myelopathy 11/18/2024 2:35 PM EST C-/T-SPINE PARAVERTEBRAL FAC ET INJ, 2 LEVELS Cervical spondylosis without myelopathy 11/18/2024 2:35 PM EST C-/T-SPINE PARAVERTEBRAL FAC ET INJ, 3 OR MORE LEVELS Cervical spondylosis without myelopathy 11/18/2024 2:35 PM EST C-/T-SPINE PARAVERTEBRAL FAC ET INJ, 1 LEVEL Cervical spondylosis without myelopathy 12/02/2024 1:45 PM EST C-/T-SPINE PARAVERTEBRAL FAC ET INJ, 2 LEVELS Cervical spondylosis without myelopathy 12/02/2024 1:45 PM EST C-/T-SPINE PARAVERTEBRAL FAC ET INJ, 3 OR MORE LEVELS Cervical spondylosis without myelopathy 12/02/2024 1:45 PM EST ESOPHAGOGASTRODUODENOSCOPY ( EGD), FLEXIBLE, TRANSORAL, DIAGNOSTIC Recall Greer esophagus COLONOSCOPY FLEXIBLE PROXIMA L DIAGNOSTIC Recall History of colon polyps Health Maintenance Due Date Last Done Comments [...] 10/03/2019, Additional history exists TSH 08/10/2023 08/10/2022, 110 06/2021, 04/12/2019, Additional history exists Mammogram 06/14/2024 [...] Completed 07/14/2023, 04/25/2023 Diabetic Eye Exam Discontinued 07/31/2024, 07/17/2023 HPV (Gardasil) Vaccine Aged Out No [...] as of this encounter Visit Diagnoses Diagnosis Cervical radiculopathy- Primary Brachial neuritis or radiculitis nos Cervical spondylosis Cervical spondylosis without myelopathy Cervical spondylosis without myelopathy Cervical spondylosis without myelopathy documented in this encounter Advance Directives * Full Code (Latest Code Status on File) Date Activated Date Inactivated Comments 10/31/2018 12:58 PM 11/01/2018 3:31 PM This order reflects the patients wishes and were consensually agreed upon. * Full Code Date Activated Date Inactivated Comments 10/31/2018 7:10 AM 10/31/2018 12:58 PM This order reflects the patients wishes and were consensually agreed upon. Care Teams Independent Crop Consultant Relationship Specialty Start Date End Date Nikki Phan MD [address] [place] [address] PCP - General Internal Medicine 07/21/23 documented as of this encounter
--- OUTSIDE RECORDS SUMMARY | 2024-09-10 13:18 | External Medical Summary | Summary of Care ---
Author Name Unknown Organization [facility] Address [address] [place] [address] Phone [phone] Care Team Providers Care Business Relations Manager Name Role Phone Nikki Phan MD Primary Care Provide r Encounter Details Date Type Department Care Team (Late st Contact Info) Description 09/02/2024 Orders Only Outcomes Research Department [address] [place] [address] Angelique Huang CHRA [facility] Other*[id number] Allergies Active Allergy Reactions Criticality Noted Date Comments Clarithromycin 10/02/2007 Hives Codeine 06/21/2012 Stomach pain documented as of this encounter (statuses as of 09/02/2024) Medications FLUTICASONE PROPIONATE 50 MCG/ACT NA SUSPIndications :in evening Administer into each nostril. Indications: in evening 3 4 Active ADVAIR DISKUS 100-50 MCG/DOSE IN AEPBIndications :as needed Inhale by mouth. Indications: as needed 4 4 Active RIZATRIPTAN BENZOATE 10 MG PO TBDP TAKE 1 TABLET AT ONSET OF HEADACHE-MAY REPEAT EVERY 2 HOURS NEEDED-MAS 3 IN 24 HOURS 4 4 Active Levothyroxine Sodium 200 MCG Oral Tablet 1 tab daily Active Nystatin powder Apply to abdomen as needed. 1 Bottle 2 9 Active Calcium Citrate-Vitamin D 500-400 MG-UNIT CHEW Take 2 Tablets by mouth in the morning and 2 Tablets before bedtime. 9 Active Cholecalciferol (VITAMIN D) 1000 units Tablet Take 1 Tablet by mouth in the morning. 9 Active Childrens Chewable Vitamins Oral Tablet Chewable Take 1 Tablet by mouth in the morning and 1 Tablet before bedtime. Active Dodex 1000 MCG/ML Injection Solution (vitamin b-12) INJECT 1 ML INTO LARGE MUSCLE EVERY 3 MONTHS 1 mL 5 3 Active Syringe Luer Lock 25G X 5/8" 3 ML For vitamin B12 injections 4 Each 3 Active buPROPion HCl ER (SR) 150 MG Oral Tablet Extended Release 12 Hour (Wellbutrin SR) TAKE 1 TABLET BY MOUTH IN THE MORNING AND BEFORE BEDTIME 180 Tablet 1 4 Active Naltrexone HCl 50 MG Oral Tablet (Revia) Take 0.5 Tablets by mouth in the morning and 0.5 Tablets in the evening. 90 Tablet 1 4 Active documented as of this encounter (statuses as of 09/02/2024) Active Problems Problem Noted Date Diagnosed Date S/P gastric bypass 11/14/2018 SANDRA (obstructive sleep apnea) 07/05/2018 Prediabetes 07/05/2018 Mixed hyperlipidemia 07/05/2018 Essential hypertension 07/05/2018 History of malignant melanoma of skin 10/23/2017 Overview (10/23/2017): left mid back 06/27 0.35mm History of nonmelanoma skin cancer 10/23/2017 Overview (10/23/2017): BCC left back 10/30 BCC left posterior [...] as of this encounter (statuses as of 09/02/2024) Resolved Problems Problem Noted Date Diagnosed Date Resolved Date Obesity, Class II, BMI 35-39 .9, isolated (see actual BMI) 09/27/2018 01/03/2019 Type 2 diabetes mellitus wit h hemoglobin A1c goal of less than 7.0% 07/05/2018 07/05/2018 Severe obesity with body mas s index (BMI) of 35.0 to 39.9 with serious comorbidity 07/05/2018 Overview (08/01/2018): ICD-10 update of inactive diagnosis Allergic rhinitis 11/20/2008 Overview (11/20/2008): Resolved per Duplicate Protocol #2. Chronic sinusitis 11/20/2008 Overview (11/20/2008): Resolved per Duplicate Protocol #2. Hypertrophy of nasal turbinates 11/20/2008 Overview (11/20/2008): Resolved per Duplicate Protocol #2. 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 Answer Date of Assessment Author No 10/31/2018 2:35 PM Chalo Dolan RN * Are you blind or do you have serious difficulty seeing, even when wearing glasses? Answer Date of Assessment Author No 10/31/2018 2:35 PM Chalo Dolan RN * Do you have serious difficulty walking or climbing stairs? (5 years old or older) Answer Date of Assessment Author No 10/31/2018 2:35 PM Chalo Dolan RN * Do you have difficulty dressing or bathing? (5 years old or older) Answer Date of Assessment Author No 10/31/2018 2:35 PM Chalo Dolan RN * Because of a physical, mental, or emotional condition, do you have difficulty doing errands alone such as visiting a doctors office or shopping? (15 years old or older) Answer Date of Assessment Author No 10/31/2018 2:35 PM Chalo Dolan RN documented as of this encounter Mental Status * Because of a physical, mental, or emotional condition, do you have serious difficulty concentrating, remembering, or making decisions? (5 years old or older) Answer Entry Date Author No 10/31/2018 2:35 PM Chalo Dolan RN documented in this encounter Plan of Treatment Upcoming Encounters Date Type Department Care Team (Latest Contact Info) Description 10/17/2024 1:30 PM EST Telemedicine Interventional Pain Center, [facility] [address] [place] [address] Ca Marquez PA-C [address] [place] [address] 11/18/2024 2:35 PM EST Hospital Encounter [facility], Operating Room [facility] [address] [place] [id number] Carlos Bhatia DO [address] [place] [address] 11/18/2024 2:35 PM EST - 11/18/2024 3:00 PM EST Surgery OR [facility], Operating Room [facility] [address] [place] [address] Carlos Bhatia, DO [address] [place] [address] C-/T-SPINE PARAVERTEBRAL FACET INJ, 1 LEVEL 12/02/2024 1:45 PM EST Hospital Encounter [facility], Operating [facility] [address] [place] [address] Carlos Bhatia, DO [address] [place] [address] 12/02/2024 1:45 PM EST - 12/02/2024 2:10 PM EST Surgery OR [facility], Operating Room [facility] [address] [place] [phone] Carlos Bhatia, DO [address] [place] [address] C-/T-SPINE PARAVERTEBRAL FACET INJ, 1 LEVEL 01/02/2025 4:00 PM EDT Office Visit Dermatology [facility] [address] [facility] [place] [address] Yaquelin Kumar MD [address] [facility] [place] [address] Scheduled Orders Name Type Priority Associated Diagnoses Orde r Schedule MYCODE SUBSEQUENT ADULT Lab Routine [facility] Other*[id number] Every 6 Months for 2 Occurrences starting 09/02/2024 until 09/22/2025 Scheduled Procedures Name Priority Associated Diagnoses Date/Ti [...] Test 2006 Sigmoidoscopy 2006 HbA1c 08/10/2023 08/10/2022, 110 06/2021, 10/03/2019, Additional history exists TSH 08/10/2023 08/10/2022, 11/0 06/2021, 04/12/2019, Additional history exists Mammogram 06/14/2024 06/14/2023, 05/17, 12/29/2021, Additional history exists COVID-19 Vaccine ( season) 2024 04/06/2022, 01/04/2021, 12/14/2020 GFR 09/18/2024 09/18/2023, 07/17, 08/24/2021, Additional history exists Colonoscopy 12/02/2024 12/02/2019, 11/16, 09/29/2014, Additional history exists Colorectal Cancer Screening 12/02/2024 Lipid Panel 08/24/2026 08/24/2021, 09/15, 04/12/2019, Additional history exists RETIRED - COLONOSCOPY-EVERY 5 YRS AGES 18-100 Discontinued 12/02/2019, 12/02/2019, 09/29/2014, Additional history exists Zoster Vaccines Completed 07/14/2023, 04/25/2023 Influenza Vaccine (FLU shot) Completed 07/16/2024, 09/24/2020 Diabetic Eye Exam Discontinued 07/31/2024, 07/17/2023 HPV [...] as of this encounter Visit Diagnoses Diagnosis [facility] Other*[id number] Cervical spondylosis without myelopathy Cervical spondylosis without [...] and were consensually agreed upon. Care Teams Business Relations Manager Relationship Specialty Start Date End Date Nikki Phan MD [address] [place] [address] PCP - General Internal Medicine 07/21/23 documented as of this encounter
--- OUTSIDE RECORDS SUMMARY | 2024-09-10 13:18 | External Medical Summary | Summary of Care ---
Author Name Unknown Organization [facility] Address [address] [facility] [place] [address] Phone [phone] Care Team Providers Care Manager Completions Name Role Phone Nikki Phan MD Primary Care Provide r Reason for Visit * Reason Onset Date Comments Appointment 08/20/2024 Encounter Details Date Type Department Care Team (Late st Contact Info) Description 08/20/2024 Telephone Radiology [address] [place] [address] Sandra Ojeda, RT (M) Appointment Allergies Active Allergy Reactions Criticality Noted Date Comments Clarithromycin 10/02/2007 Hives Codeine 06/21/2012 Stomach pain documented as of this encounter (statuses as of 08/20/2024) Medications Medication Sig Dispensed Refills Start Date [...] as of this encounter (statuses as of 08/20/2024) Active Problems Problem Noted Date Diagnosed Date [...] as of this encounter (statuses as of 08/20/2024) Resolved Problems Problem Noted Date Diagnosed Date [...] as of this encounter (statuses as of 08/20/2024) Social History Tobacco Use Types Packs/Day Years [...] No 10/31/2018 documented as of this encounter Miscellaneous Notes * Telephone Encounter - Sandra Ojeda RT (M) - 08/20/2024 3:16 PM EST Name: Jeanne Flores Do you have any of the following: Pacemaker, stents, heart valves, aneurysm clips? No Have you ever worked with metal or have you ever gotten metal in your eyes? No Have you had a colonoscopy in the last 30 days? No On dialysis? No Do you have any dermals or body piercing's? No or ? N/A Do you wear an insulin pump or diabetic monitor? No RT Dev (M) documented in this encounter Plan of Treatment Upcoming Encounters Date Type Department Care Team (Latest Contact Info) Description 08/26/2024 5:00 PM EST Imaging Radiology [facility] 1st Floor, [place] [address] [place] [address] 09/30/2024 3:40 PM EST Office Visit Nutrition & Weight Management, [facility] [address] [place] [address] Dina Orozco PA-C [address] [place] [address] 10/17/2024 1:30 PM EST Telemedicine Interventional Pain Center, [facility] [address] [place] [address] Ca Marquez PA-C [address] [place], [place] [address] 11/18/2024 2:35 PM EST Hospital Encounter [facility], Operating Room [facility] [address] [place], [place] [address] Carlos Bhatia, DO [address] [place], [place] [address] 11/18/2024 2:35 PM EST - 11/18/2024 3:00 PM EST Surgery OR [facility], Operating Room [facility] [address] [place] [address] Carlos Bhatia, [address] [place] [phone] C-/T-SPINE PARAVERTEBRAL FACET INJ, 1 LEVEL 12/02/2024 1:45 PM EST Hospital Encounter [facility], Operating Room [facility] [address] [place] [address] Carlos Bhatia, DO [address] [place] [address] 12/02/2024 1:45 PM EST - 12/02/2024 2:10 PM EST Surgery [facility], Operating Room [facility] [address] [place] [address] Carlos Bhatia, DO [address] [place] [address] C-/T-SPINE PARAVERTEBRAL FACET INJ, 1 LEVEL 01/02/2025 4:00 PM EDT Office Visit Dermatology [facility] [place] [address] [place] [address] Yaquelin Kumar MD [address] [place] [address] Scheduled Procedures Name Priority Associated Diagnoses Date/Ti [...] Not on filedocumented as of this encounter Advance Directives * Full Code (Latest Code Status on File) Date Activated Date Inactivated Comments 10/31/2018 12:58 PM 11/01/2018 3:31 PM This order reflects the patients wishes and were consensually agreed upon. * Full Code Date Activated Date Inactivated Comments 10/31/2018 7:10 AM 10/31/2018 12:58 PM This order reflects the patients wishes and were consensually agreed upon. Care Teams Manager Completions Relationship Specialty Start Date End Date Nikki Phan MD [address] [facility] [place] [address] PCP - General Internal Medicine 07/21/23 documented as of this encounter
[2024-09-10] MEDS: PROMETHAZINE 12.5 MG/50.5 ML BAG IV STA (13:45)
[2024-09-10] MEDS: MoRPHine SULFATE 4 MG/ML 1 ML CARP\\VIAL IV PRN (14:50)
[2024-09-10] MEDS: PROMETHAZINE 12.5 MG/50.5 ML BAG IV PRN (20:00)
[2024-09-10] MEDS: buPROPion SR 150 MG TABCR PO SCH (20:15)
[2024-09-10] MEDS ORDERED: buPROPion SR 150 MG TABCR PO SCH (21:00)
[2024-09-11] MEDS: SODIUM CHLORIDE 0.9% 1,000 ML IV SCH ×2 (02:40→14:19)
[2024-09-11] MEDS: LEVOTHYROXINE SODIUM 175 MCG TABLET PO SCH (05:47)
[2024-09-11] MEDS: buPROPion SR 150 MG TABCR PO SCH (07:53)
[2024-09-11 08:09] LABS: Hematocrit (blood only) 37.5 % (37.0-47.0); Mean Corpuscular Hemoglobin 31.2 pg (25.0-34.0); Mean Corpuscular Hgb Conc 34.7 g/dL (32.0-36.0); Mean Corpuscular Volume 89.9 fL (80.0-100.0); Mean Platelet Volume 11.5 fL (9.4-12.4); Platelet Count 247 K/uL (130-400); RDW Coefficient of Variation 12.7 % (11.5-14.5); RDW Standard Deviation 41.7 fL (36.4-46.3); Red Blood Count 4.17 M/uL (4.20-5.40); White Blood Count 13.64 K/ul (4.8-10.8)
[2024-09-11 08:27] LABS: BUN Creatinine Ratio 18.7 (10-20); Calcium 8.5 mg/dl (8.6-10.3); Creatinine Clr Calc Pharmacy 85.2 ml/min; Potassium 4.1 mmol/L (3.5-5.1)
--- NOTE | 2024-09-11 09:36 | Surgery Progress Note ---
Date of Service September 11, 2024 Assessment & Plan (1) Small bowel obstruction: Plan: 64 yo female with history of gastric bypass, cholecystectomy, and hysterectomy presented to ED with sudden onset of right lower abdominal pain with associated nausea and dry heaves. CT scan with moderate to high grade SBO with transition at terminal ileum. labs unremarkable and hemodynamically stable. NGT placed with minimal output. Abdomen tender in RLQ and LLQ with voluntary guarding but no peritonitis. soft, mildly distended. Lactate normal. Discussed with patient and imaging findings. Discussed initial conservative management with NGT for decompression, bowel rest, IV fluids, pain management and antiemetics as needed. Will follow closely. May require surgical intervention if no improvement in pain. 09/11/24 avss leukocytosis of 13K today no real improvement of pain and requiring IV morphine 4 mg every 3 -4 hours no return of bowel function encouraged ambulation this am may require exploration today Admission and Anticipated Discharge Date Admission Date: September 10, 2024 Supervising Physician Co-Signing Physician Notes I have seen and examined the patient and agree with the above assessment plan. She is not progressing to resolution of the bowel obstruction. She continues to have no flatus or bowel movements. She is requiring pain medication every few hours. She is nauseated with the NG tube. We discussed the risks and benefits of a exploratory laparotomy with lysis of adhesions, possible bowel resection. All her questions were answered and she is agreeable to proceed. Will take her to the operating room at the earliest convenience. Subjective feeling okay right now but still had rough night nausea throughout night Pain comes in waves every few minutes and goes from 0-10 no flatus has not ambulated hallway requiring Morphine every 3-4 hours Physical Exam Constitutional: WD/WN, vitals as above + obese, cooperative and comf ortable; no acute distress and not ill appearing Respiratory: normal respiratory effort Gastrointestinal (Abdomen): Inspection/Auscultation: abdomen normal to inspection, + abdominal surgical scar and + hypoactive bowel sounds; abdomen not distended and + abnormal bowel sounds Percussion/Palpation: + abdomen tender (RLQ), + guarding (RLQ) and abdomen soft; abdomen not rigid and abdomen not firm NGT without any output in cannister Skin: no rashes, warm and dry Psychiatric: Orientation: alert and oriented x 3 Results & Data Vital Signs (Past 12 Hours) Vital Signs Temp Pulse Resp BP Pulse Ox O2 Del Method 09/11/24 08:01 37 C 63 16 117/74 94 Room Air Laboratory Results 09/11/24 Range/Units 07:37 WBC 13.64 H (4.8-10.8) K/ul RBC 4.17 L (4.20-5.40) M/uL Hgb 13.0 (12.0-16.0) g/dl Hct 37.5 (37.0-47.0) % MCV 89.9 (80.0-100.0) fL MCH 31.2 (25.0-34.0) pg MCHC 34.7 (32.0-36.0) g/dL RDW Std Deviation 41.7 (36.4-46.3) fL RDW Coeff of Luiz 12.7 (11.5-14.5) % Plt Count 247 (130-400) K/uL MPV 11.5 (9.4-12.4) fL Sodium 141 (136-145) mmol/L Potassium 4.1 (3.5-5.1) mmol/L Chloride 110 H (98-107) mmol/L Carbon Dioxide 26 (21-32) mmol/L Anion Gap 5 (3-11) BUN 14 (6-23) mg/dl Creatinine 0.75 (0.6-1.2) mg/dl Est Cr Clr Drug Dosing 85.2 ml/min eGFR 89.40 BUN/Creatinine Ratio 18.7 (10-20) Glucose 120 H (70-99(Fasting)) mg/dl Calcium 8.5 L (8.6-10.3) mg/dl
[2024-09-11] MEDS ORDERED: fentaNYL citrate PF 100 MCG/2 ML VIAL ONE ×2 (10:11→12:23)
[2024-09-11] MEDS ORDERED: MIDAZOLAM HCL 1 MG/ML 2ML VIAL ONE (10:11)
[2024-09-11] MEDS ORDERED: diphenhydrAMINE 50 MG/ML VIAL ONE (10:11)
[2024-09-11] MEDS ORDERED: PROPOFOL IV EMULSION 10 MG/ML 20 ML VIAL IV ONE (10:11)
[2024-09-11] MEDS ORDERED: LIDOCAINE 2% 2 ML VIAL/AMP(20MG/ML) INFIL ONE (10:11)
[2024-09-11] MEDS ORDERED: DEXAMETHASONE SOD INJ 4 MG/ML VIAL ONE (10:11)
[2024-09-11] MEDS ORDERED: ONDANSETRON INJ 2 MG/ML 2 ML VIAL ONE (10:11)
[2024-09-11] MEDS ORDERED: ROCURONIUM BROMIDE 10 MG/ML 5 ML VIAL IV ONE (10:11)
[2024-09-11] MEDS ORDERED: SODIUM CHLORIDE 0.9% PF INJ 10 ML VIAL ONE (10:13)
[2024-09-11] MEDS ORDERED: ACETAMINOPHEN 1000 MG/100 ML IV IV ONE (10:21)
--- NOTE | 2024-09-11 10:43 | XRay Report ---
XR chest 1V portable CLINICAL HISTORY: pre-op COMPARISON STUDY: Chest radiograph March 25, 2020. Chest CT October 05, 2020. FINDINGS: Tip of nasogastric tube is within the body of the stomach. Elevation of the left hemidiaphr agm with left basilar opacity consistent with atelectasis is noted. There is no consolidation to sugg est pneumonia. No evidence for pulmonary edema. IMPRESSION: No acute cardiopulmonary findings. ACT 112: Negative or not required by law. Electronically signed by: Rene Sosa M.D. 09/11/2024 10:41 AM
--- NOTE | 2024-09-11 10:50 | Anesthesiology Consultation ---
Date of Service September 11, 2024 Assessment & Plan Chart Review Chart Review: Acceptable Risk for Surgery and Patient NOT seen in Pre Admission Testing Consults Requested none ASA ASA3 Proposed Anesthesia Anesthesia Type: General Risk / Benefits Reviewed With: PT / POA / Parent / Guardian, Accepts Plan and Informed Consent Obtained History Surgery Operation Date: 09/11/24 09:50 Proposed Procedures p Exploratory Laparotomy, Possible Bowel Resection - Toni Locke MD Height/Weight Height: 5 ft 5 in Weight: 90.3 kg Allergies Allergy/AdvReac Type Severity Reaction Status Date / Time clarithromycin [From Biaxin] Allergy Severe throat Verified 09/11/24 10:36 swelling codeine Allergy Intermediate abd Verified 09/11/24 10:36 cramping Pjlenqp-EPK-HcK Reductase Allergy Intermediate joint Verified 09/11/24 10:36 Inhibitor swelling [Xmwwmmj-Far-Vtg Reductase and Inhibitor] soreness fluoxetine [From Prozac] Allergy Unknown Verified 09/11/24 10:36 sertraline [From Zoloft] Allergy Unknown Verified 09/11/24 10:36 Medications Home Medications Medication Instructions Recorded Confirmed Last Taken albuterol sulfate 90 mcg/actuation 2 puffs inhalation Q4H PRN sob 01/08/20 09/10/24 Unknown aerosol inhaler cetirizine 10 mg tablet (Zyrtec) 20 mg PO BID PRN allergies 04/25/23 09/10/24 Unknown bupropion HCl 150 mg tablet,12 hr See Rx Instructions PO BID #270 ea 07/16/24 09/10/24 Unknown sustained-release cyanocobalamin (vitamin B-12) 1,000 mcg IM Q3MO 07/16/24 09/10/24 Unknown 1,000 mcg/mL injection solution naltrexone 50 mg tablet 25 mg PO BID 07/16/24 09/10/24 Unknown fluticasone propionate 50 2 spray intranasal DAILY 09/10/24 09/10/24 Unknown mcg/actuation nasal spray,suspension levothyroxine 175 mcg tablet 175 mcg PO DAILY 09/10/24 09/10/24 Unknown rizatriptan 10 mg disintegrating 10 mg PO UD PRN Migraine Headache 09/10/24 09/10/24 Unknown tablet Active Medications Generic Name Dose Route Start Last Admin Trade Name Freq PRN Reason Stop Dose Admin Enoxaparin Sodium 40 mg 09/10/24 11:00 09/10/24 11:52 Enoxaparin Inj 40 Mg/0.4 Ml Syr SQ 10/10/24 10:59 Not Given Q24H KAEL Promethazine HCl 12.5 mg in 50.5 mls @ 202 mls/hr 09/10/24 13:29 09/10/24 20:18 Phenergan IV 10/10/24 13:28 Infused Q6H PRN Infusion Nausea And Vomiting Sodium Chloride 1,000 mls @ 80 mls/hr 09/11/24 01:15 09/11/24 02:40 Nss IV 09/11/24 13:44 80 mls/hr .[id number] KAEL Administration Morphine Sulfate 4 mg 09/10/24 11:51 09/11/24 07:53 Morphine Sulfate 4 Mg/Ml 1 Ml Carp\Vial IV 09/24/24 11:50 4 mg Q3H PRN Administration Severe Pain (Scale 7, 8, 9,10) Ondansetron HCl 4 mg 09/10/24 10:44 09/11/24 02:40 Ondansetron Inj 2 Mg/Ml 2 Ml Vial IV 10/10/24 10:29 4 mg Q4H PRN Administration Nausea NPO Date Last Intake of Fluids: 09/09/24 Time Last Intake of Fluids: 18:00 Date Last Intake of Solids: 09/09/24 Time Last Intake of Solids: 18:00 Past Medical History Medical History Barretts esophagus Resolved s/p RYGB Essential hypertension Resolved s/p RYGB Gastroesophageal reflux disease Resolved s/p RYGB Hyperlipidemia Resolved s/p RYGB History of prediabetes Resolved s/p RYGB Exercise / Class Metabolic Activity II 4-5 Yardwork/Stairs/Walk up hill Past Family History Family History Mother Coronary heart disease Diabetes Hypertension Father Hypertension Myocardial infarction Prostate cancer Sister Hypertension Denies family history of Ovarian cancer Breast cancer Lung cancer Colorectal cancer Past Surgical History Surgical History History of hysterectomy History of cholecystectomy Past Anesthesia History No Hx of Anesthesia Complications and No Family Hx of Anesthesia Complications History of PONV No Hx of PONV and No Hx of Motion Sickness Social History Smoking Status: Former smoker Smoking cigarettes per day: 0.5 a week Do You Dip or Chew Tobacco: No Hx Alcohol Use: No Hx Substance Use: No Physical Exam Vital Signs Last Vital Signs Temp 36.8 C 09/11/24 10:37 Pulse 73 09/11/24 10:37 Resp 20 09/11/24 10:37 BP 121/78 09/11/24 10:37 Pulse Ox 97 09/11/24 10:37 O2 Del Method Room Air 09/11/24 10:[address] ENMT Mouth: no dentition abnormality Thyromental Distance: > or= 3.5 Finger Breadths Mallampati Class: II Neck normal visual inspection Respiratory normal respiratory effort Auscultation: lungs clear to auscultation bilaterally Cardiovascular Rate/Rhythm: regular rate and regular rhythm Psychiatric Orientation: alert Testing Laboratory Results 09/11/24 07:37 09/11/24 07:37 Urine Color Yellow 09/10/24 07:35 Urine Appearance Clear (Clear) 09/10/24 07:35 Urine pH 8.5 (4.5-7.5) H 09/10/24 07:35 Ur Specific Hobson 1.021 (1.000-1.030) 09/10/24 07:35 Urine Protein 1+ (Negative) H 09/10/24 07:35 Urine Glucose (UA) Negative (Negative) 09/10/24 07:35 Urine Ketones Trace (Negative) H 09/10/24 07:35 Urine Nitrite Negative (Negative) 09/10/24 07:35 Ur Leukocyte Esterase Trace (Negative) H 09/10/24 07:35 Urine WBC (Auto) 0-5 /hpf (0-5) 09/10/24 07:35 Urine RBC (Auto) 3-5 /hpf (0-2) H 09/10/24 07:35 U Hyaline Cast (Auto) 0-2 /lpf (0-2) 09/10/24 07:35 U Epithel Cells (Auto) 0-2 /hpf (0-2) 09/10/24 07:35 Urine Bacteria (Auto) None Seen (None Seen) 09/10/24 07:35
[2024-09-11] MEDS ORDERED: ePHEDrine sulfate 50 MG/ML AMP IV PRN (10:54)
[2024-09-11] MEDS ORDERED: PROMETHAZINE HCL 6.25 MG in SODIUM CHLORIDE 0.9% 50 ML IV PRN (10:54)
[2024-09-11] MEDS ORDERED: ONDANSETRON INJ 2 MG/ML 2 ML VIAL IV PRN (10:54)
[2024-09-11] MEDS ORDERED: ATROPINE SULFATE 0.1 MG/ML 10ML SYR IV PRN (10:54)
[2024-09-11] MEDS ORDERED: SUCCINYLCHOLINE 100MG/5ML SYR IV ONE (11:17)
[2024-09-11] MEDS ORDERED: cefOXitin SOD 1,000 MG VIAL ONE ×2 (11:28)
[2024-09-11] MEDS: cefOXitin 2,000 MG in DEXTROSE 5 % MINI-B 50 ML IV SCH (11:30)
[2024-09-11] MEDS ORDERED: SUGAMMADEX SODIUM 200 MG/2 ML VIAL IV ONE (11:43)
[2024-09-11] MEDS ORDERED: ePHEDrine sulfate 50 MG/5 ML SYR ONE (12:11)
--- NOTE | 2024-09-11 12:24 | Post Operative Brief Note ---
Immediate Post Op Note Date of Surgery September 11, 2024 Pre & Post Diagnosis Operation Date: 09/11/24 09:50 Pre-Op Diagnosis: Small bowel obstruction Post-Op Diagnosis: Small bowel obstruction I identified the patient and participated in the time-out.: Yes Procedure Operation Date: 09/11/24 09:50 Actual Procedures p Exploratory Laparotomy, Lysis of Adhesions(Not Applicable) - Toni Locke MD Surgeon Toni Locke MD Tax Evaluator VIOLETTA Lewis assisted with tissue retraction, camera op, closure Estimated Blood Loss 5 Findings Consistent with Post-Op Diagnosis Drains Brumfield Catheter (16Fr brumfield placed prior to start of case with no difficulty)
--- NOTE | 2024-09-11 12:27 | Operative Report ---
Post Operative Report Pre & Post Diagnosis Operation Date: 09/11/24 09:50 Pre-Op Diagnosis: Small bowel obstruction Post-Op Diagnosis: Small bowel obstruction I identified the patient and participated in the time-out.: Yes Procedure Operation Date: 09/11/24 09:50 Actual Procedures p Exploratory Laparotomy, Lysis of Adhesions(Not Applicable) - Toni marina MD Surgeon Toni Locke MD Texturing Machine Fixer VIOLETTA Lewis assisted with tissue retraction, camera op, closure Estimated Blood Loss 5 Findings Consistent with Post-Op Diagnosis adhesive band causing a near closed-loop obstruction of the terminal ileum Specimens none Drains none Anesthesia Type General Complications none Description of Procedure the patient was taken the operating room, placed supine on the operating table. A timeout was performed, perioperative antibiotics were administered, SCD boots were placed. After adequate anesthesia and analgesia was obtained, the abdomen was prepped and draped in a normal sterile fashion. Midline incision was made with a 15 blade scalpel and carried down to the level of the subcutaneous tissue. The level of the fascia was obtained. The fascia was opened at the level of the umbilicus and the incision was opened to its fullest extent. A significant amount of inflammatory ascitic fluid was encountered and was suctioned free. The small bowel was quite dilated and was eviscerated. I ran the small bowel down towards the terminal ileum. In this location, there were bands of adhesive tissue causing a loop of bowel to fall back on itself causing a near closed-loop obstruction. These bands were lysed with the electrocautery. The remainder of the bowel was brought up into the incision. There were no further points of obstruction. Fluid in the small intestine was milked down to the terminal ileum, and it passed easily into the cecum. The abdomen was copiously irrigated and suctioned free. The bowel was replaced back into the abdominal cavity. The fascia was closed with a running #1 PDS suture. The skin was closed with surgical clips. Dressings were applied. A binder was applied. She tolerated the procedure without complication, transferred in stable condition to the PACU. All instrument, needle, and sponge counts were correct at the end of the case. My admin assistant was necessary throughout the procedure for tissue retraction, possible camera operation, and closure of the wounds. I understand that section 1842(b)(7)(D) of the Social Security act generally prohibits Medicare physician fee schedule payment for the services of assistants at surgery in [facility] when qualified residents are available to furnish such services. I certify that the services for which payment is claimed were medically necessary and that no qualified resident was available to perform the services. I further understand that these services are subject to postpayment review by the Medicare carrier. I attest to the content of the Intraoperative Record and any orders documented therein. Any exceptions are noted below.
[2024-09-11] MEDS: fentaNYL citrate PF 100 MCG/2 ML VIAL IV PRN (12:43)
[2024-09-11] MEDS: HYDROmorphone INJ 2 MG/ML SYR/VIAL IV PRN (13:12)
[2024-09-11] MEDS: FAMOTIDINE/PF 20 MG/2 ML VIAL IV ONE (13:48)
[2024-09-11] MEDS: PANTOprazole 40 MG/10 ML SYR IV SCH (13:56)
--- NOTE | 2024-09-11 13:56 | Anesthesiology Progress Note ---
Date of Service September 11, 2024 Anesthesia Post Procedure Vital Signs Vital Signs: Temp Pulse Pulse Resp BP Pulse Ox O2 Del Method 09/11/24 13:40 36.6 C 61 18 123/82 98 Nasal Cannula 09/11/24 13:00 36.4 C L 59 L 16 125/83 94 Room Air 09/11/24 12:50 60 16 134/78 100 Oxymask 09/11/24 12:40 57 L 16 142/75 H 100 Oxymask 09/11/24 12:33 36.5 C 55 L 17 120/74 100 Oxymask 09/11/24 10:37 36.8 C 73 20 121/78 97 Room Air 09/11/24 08:01 37 C 63 16 117/74 94 Room Air 09/10/24 21:14 Room Air 09/10/24 21:07 37.0 C 65 14 120/72 98 Room Air 09/10/24 15:43 37.1 C 69 18 112/72 97 Room Air O2 Flow Rate 09/11/24 13:40 2 09/11/24 13:00 09/11/24 12:50 5 09/11/24 12:40 5 09/11/24 12:33 5 09/11/24 10:37 09/11/24 08:01 09/10/24 21:14 09/10/24 21:07 09/10/24 15:43 Pain Intensity Abdomen: Pain Intensity: 7 Transfer of Care Handoff Completed per policy Notes Mental Status: alert / awake / arousable Patient Amnestic to Procedure: Yes Nausea / Vomiting: adequately controlled Pain: adequately controlled Airway Patency, RR, SpO2: stable & adequate BP & HR: stable & adequate Hydration State: stable & adequate Anesthetic Complications: no major complications apparent
--- NOTE | 2024-09-11 14:30 | Hospitalist Progress Note ---
Date of Service September 11, 2024 Assessment & Plan (1) Small bowel obstruction: Plan: She underwent exploratory laparotomy with lysis of adhesions earlier today, September 11. Appreciate general surgery consultation and recommendations. Hopefully her recovery now will be uneventful. Clear liquids have been started and will be advanced as tolerated. (2) Hypothyroidism: Plan: Stable. Resume oral replacement therapy when able (3) Asthma: Plan: Stable. DuoNebs as needed (4) Status post gastric bypass for obesity: Plan: Also history of cholecystectomy and total abdominal hysterectomy. Likely because of adhesions causing small bowel obstruction. Plan Anticipate eventual discharge to home within the next 2 to 3 days Admission and Anticipated Discharge Date Admission Date: September 10, 2024 Subjective The patient was seen preoperatively. She underwent exploratory laparotomy with lysis of adhesions and relief of small bowel obstruction today, September 11. Review of Systems 2 Review of Systems: Constitutionalno fever or chills ENTno blurred vision, no double vision, no epistaxis, no sore throat Respiratoryno cough, no wheezing, no shortness of breath Cardiacno palpitations, no chest pain, no syncope GIpersistent nausea preoperatively. No vomiting. NG tube in place. No melena, no hematochezia GUno urinary retention, no urinary incontinence, no dysuria, no hematuria Musculoskeletalno joint pain, no muscle tenderness Skinno bruising, no rashes, no pruritus Neurono isolated weakness, no paresthesia, no weakness Psychno depression, no anxiety Physical Exam 2 Physical Exam: General-alert and oriented x3, no fever, no chills HEENT-head atraumatic and normocephalic, pupils equal and reactive to light, extraocular muscles intact. NG tube in place Neck-no lymphadenopathy or thyromegaly, trachea midline Chest-clear to auscultation. No rales, wheezing or rhonchi Cardiac-regular rate and rhythm, normal S1 and S2 Abdomen-diffusely mildly tender. No rebound or guarding. Active bowel sounds. Mild distention. Extremities- no cyanosis, clubbing, or edema Neuro-cranial nerves II through XII intact, motor and sensory function within normal limits, strength symmetrical, no focal deficits Psych-normal affect, normal mood Results & Data Results & Data Vital Signs (Past 12 Hours) Vital Signs Temp Pulse Pulse Resp BP Pulse Ox O2 Del Method 09/11/24 14:08 36.6 C 61 16 131/84 98 Nasal Cannula 09/11/24 13:40 36.6 C 61 18 123/82 98 Nasal Cannula 09/11/24 13:00 36.4 C L 59 L 16 125/83 94 Room Air 09/11/24 12:50 60 16 134/78 100 Oxymask 09/11/24 12:40 57 L 16 142/75 H 100 Oxymask 09/11/24 12:33 36.5 C 55 L 17 120/74 100 Oxymask 09/11/24 10:37 36.8 C 73 20 121/78 97 Room Air 09/11/24 08:01 37 C 63 16 117/74 94 Room Air O2 Flow Rate 09/11/24 14:08 2 09/11/24 13:40 2 09/11/24 13:00 09/11/24 12:50 5 09/11/24 12:40 5 09/11/24 12:33 5 09/11/24 10:37 09/11/24 08:01 Laboratory Results 09/11/24 07:37 09/11/24 07:37 PG Care Time/CCT Total # of Minutes Spent Total Time Spent with Patient: Total time spent is greater than 50% in coordination of care (as documented) at patient's floor/unit and/or counseling patient: Coding Level of Care Code 32145 SUB INP/OBS CARE 3/50MIN Diagnoses Small bowel obstruction K56.609 Hypothyroidism E03.9 Asthma J45.909 Status post gastric bypass for obesity Z98.84
[2024-09-11] MEDS: KETOROLAC 30 MG/ML VIAL IV PRN (15:19)
--- NOTE | 2024-09-11 16:50 | Electrocardiogram Report ---
Test Reason : Blood Pressure : */* mmHG Vent. Rate : 68 BPM Atrial Rate : 68 BPM P-R Int : 136 ms QRS Dur : 98 ms QT Int : 400 ms P-R-T Axes : 22 -18 35 degrees QTcB Int : 425 ms Normal sinus rhythm Normal ECG Confirmed by Asael Gaines ([id number]) on 09/11/2024 4:50:07 PM Referred By: REFERRED SELF Confirmed By: Asael Gaines
[2024-09-11] MEDS: NALTREXONE HCL 50 MG TAB PO SCH (20:46)
[2024-09-12] MEDS: CHLORASEPTIC (PHENOL) 1.4% SOLN 180 ML BTL MT PRN (03:00)
[2024-09-12 06:32] LABS: BUN Creatinine Ratio 19.7 (10-20); Calcium 7.7 mg/dl (8.6-10.3); Hematocrit (blood only) 33.4 % (37.0-47.0); Hemoglobin 11.3 g/dl (12.0-16.0); Mean Corpuscular Hgb Conc 33.8 g/dL (32.0-36.0); Mean Corpuscular Volume 91.5 fL (80.0-100.0); Platelet Count 201 K/uL (130-400); Potassium 3.7 mmol/L (3.5-5.1); RDW Coefficient of Variation 12.9 % (11.5-14.5); RDW Standard Deviation 42.8 fL (36.4-46.3); Red Blood Count 3.65 M/uL (4.20-5.40); White Blood Count 8.97 K/ul (4.8-10.8)
--- NOTE | 2024-09-12 12:09 | Surgery Progress Note ---
Date of Service September 12, 2024 Assessment & Plan (1) Small bowel obstruction: Plan: POD #1 s/p exploratory laparotomy with lysis of adhesions Doing well No flatus Continue NG tube Encourage aggressive ambulation DVT prophylaxis Admission and Anticipated Discharge Date Admission Date: September 10, 2024 Subjective doing well. Some pain. No nausea or vomiting. No flatus. Physical Exam Physical Exam: AFVSS NAD, A&O x 3 Abdomen: Soft, mild TTP diffusely Dressing C/D/I Results & Data Vital Signs (Past 12 Hours) Vital Signs Temp Pulse Pulse Resp BP Pulse Ox O2 Del Method 09/12/24 07:54 36.8 C 61 16 126/84 97 Room Air 09/12/24 07:26 Nasal Cannula 09/12/24 03:16 36.7 C 64 16 118/76 96 Nasal Cannula O2 Flow Rate 09/12/24 07:54 09/12/24 07:26 2 09/12/24 03:16 2 Laboratory Results 09/12/24 Range/Units 05:49 WBC 8.97 (4.8-10.8) K/ul RBC 3.65 L (4.20-5.40) M/uL Hgb 11.3 L (12.0-16.0) g/dl Hct 33.4 L (37.0-47.0) % MCV 91.5 (80.0-100.0) fL MCH 31.0 (25.0-34.0) pg MCHC 33.8 (32.0-36.0) g/dL RDW Std Deviation 42.8 (36.4-46.3) fL RDW Coeff of Luiz 12.9 (11.5-14.5) % Plt Count 201 (130-400) K/uL MPV 11.0 (9.4-12.4) fL Sodium 142 (136-145) mmol/L Potassium 3.7 (3.5-5.1) mmol/L Chloride 110 H (98-107) mmol/L Carbon Dioxide 28 (21-32) mmol/L Anion Gap 4 (3-11) BUN 14 (6-23) mg/dl Creatinine 0.71 (0.6-1.2) mg/dl Est Cr Clr Drug Dosing 90.0 ml/min eGFR 95.48 BUN/Creatinine Ratio 19.7 (10-20) Glucose 96 (70-99(Fasting)) mg/dl Calcium 7.7 L (8.6-10.3) mg/dl
--- NOTE | 2024-09-12 12:40 | Hospitalist Progress Note ---
Date of Service September 12, 2024 Assessment & Plan (1) Small bowel obstruction: Plan: She underwent exploratory laparotomy with lysis of adhesions on September 11. Postoperative day #1. Appreciate general surgery consultation and recommendations. (2) Postoperative ileus: Plan: N.p.o. status and NG tube remain in place. She is not passing any flatus. Abdomen is mildly distended with absent bowel sounds. Will follow (3) Hypothyroidism: Plan: Stable. Resume oral replacement therapy when able (4) Asthma: Plan: Stable. DuoNebs as needed (5) Status post gastric bypass for obesity: Plan: Also history of cholecystectomy and total abdominal hysterectomy. Likely because of adhesions causing small bowel obstruction. Plan Anticipate eventual discharge to home when ileus resolves and diet has been advanced. Admission and Anticipated Discharge Date Admission Date: September 10, 2024 Subjective Alert and oriented. No distress. Unfortunately, the NG tube is causing a sore throat as expected which is no surprise. She appears to have developed a postoperative ileus. She is not passing any flatus and her abdomen is very quiet and mildly distended. Postoperative day #1 after exploratory laparotomy with lysis of adhesions. White blood cell count has decreased to 8.9. Will continue n.p.o. status with NG to intermittent low wall suction and continue IV fluids. Review of Systems 2 Review of Systems: Constitutionalno fever or chills ENTno blurred vision, no double vision, no epistaxis, no sore throat Respiratoryno cough, no wheezing, no shortness of breath Cardiacno palpitations, no chest pain, no syncope Lorena flatus. No bowel movements. No vomiting. NG tube in place. No melena, no hematochezia GUno urinary retention, no urinary incontinence, no dysuria, no hematuria Musculoskeletalno joint pain, no muscle tenderness Skinno bruising, no rashes, no pruritus Neurono isolated weakness, no paresthesia, no weakness Psychno depression, no anxiety Physical Exam 2 Physical Exam: General-alert and oriented x3, no fever, no chills HEENT-head atraumatic and normocephalic, pupils equal and reactive to light, extraocular muscles intact. NG tube in place Neck-no lymphadenopathy or thyromegaly, trachea midline Chest-clear to auscultation. No rales, wheezing or rhonchi Cardiac-regular rate and rhythm, normal S1 and S2 Abdomen-mildly distended. Absent bowel sounds. Extremities- no cyanosis, clubbing, or edema Neuro-cranial nerves II through XII intact, motor and sensory function within normal limits, strength symmetrical, no focal deficits Psych-normal affect, normal mood Results & Data Results & Data Vital Signs (Past 12 Hours) Vital Signs Temp Pulse Pulse Resp BP Pulse Ox O2 Del Method 09/12/24 07:54 36.8 C 61 16 126/84 97 Room Air 09/12/24 07:26 Nasal Cannula 09/12/24 03:16 36.7 C 64 16 118/76 96 Nasal Cannula O2 Flow Rate 09/12/24 07:54 09/12/24 07:26 2 09/12/24 03:16 2 Laboratory Results 09/12/24 05:49 09/12/24 05:49 PG Care Time/CCT Total # of Minutes Spent Total Time Spent with Patient: Total time spent is greater than 50% in coordination of care (as documented) at patient's floor/unit and/or counseling patient: Coding Level of Care Code 21139 SUB INP/OBS CARE 2/35MIN Diagnoses Small bowel obstruction K56.609 Postoperative ileus K91.89; K56.7 Hypothyroidism E03.9 Asthma J45.909 Status post gastric bypass for obesity Z98.84
[2024-09-13 06:36] LABS: Basophils # (auto) 0.04 K/uL (0.00-0.20); Basophils % (auto) 0.5 %; Eosinophils # (auto) 0.19 K/uL (0.00-0.50); Eosinophils % (auto) 2.2 %; Hematocrit (blood only) 31.7 % (37.0-47.0); Hemoglobin 10.8 g/dl (12.0-16.0); Immature Granulocytes # (auto) 0.03 K/uL (0.01-0.20); Immature Granulocytes % (auto) 0.4 %; Lymphocytes # (auto) 1.58 K/uL (1.20-3.40); Lymphocytes % (auto) 18.5 %; Mean Corpuscular Hemoglobin 31.3 pg (25.0-34.0); Mean Corpuscular Hgb Conc 34.1 g/dL (32.0-36.0); Mean Corpuscular Volume 91.9 fL (80.0-100.0); Monocytes % (auto) 10.5 %; Neutrophils # (auto) 5.82 K/uL (1.40-6.50); Neutrophils % (auto) 67.9 %; Platelet Count 193 K/uL (130-400); RDW Coefficient of Variation 12.7 % (11.5-14.5); RDW Standard Deviation 42.8 fL (36.4-46.3); Red Blood Count 3.45 M/uL (4.20-5.40); White Blood Count 8.56 K/ul (4.8-10.8)
[2024-09-13 06:56] LABS: Calcium 8.4 mg/dl (8.6-10.3); Creatinine Clr Calc Pharmacy 99.9 ml/min; Potassium 3.6 mmol/L (3.5-5.1)
--- NOTE | 2024-09-13 09:45 | Surgery Progress Note ---
Date of Service September 13, 2024 Assessment & Plan (1) Small bowel obstruction: Plan: POD#2 passing flatus remove NG ambulate Admission and Anticipated Discharge Date Admission Date: September 10, 2024 Subjective passing flatus pain controlled Review of Systems Constitutional: no fever and no chills Respiratory: no cough and no dyspnea Cardiovascular: no chest pain Gastrointestinal: + abdominal pain; no nausea and no vomit ing Genitourinary: no dysuria Neurologic: no localized weakness Psychiatric: no behavioral changes Physical Exam Constitutional: WD/WN, vitals as above Respiratory: normal respiratory effort, lungs clear to auscultation Cardiovascular: RRR, no murmur, no edema Gastrointestinal (Abdomen): Inspection/Auscultation: abdomen normal to inspection, normal bowel sounds and + abdominal surgical incision (clean and dry); abdomen not distended Percussion/Palpation: + abdomen tender and abdomen soft; no guarding and abdomen not rigid Musculoskeletal: Head/Neck/Chest: normocephalic and head atraumatic Skin: no rashes, warm and dry Results & Data Vital Signs (Past 12 Hours) Vital Signs Temp Pulse Resp BP Pulse Ox O2 Del Method 09/13/24 07:24 36.8 C 63 16 121/77 91 Room Air
[2024-09-13] MEDS: SODIUM CHLORIDE 0.9% 1,000 ML IV SCH (11:19)
--- NOTE | 2024-09-13 13:29 | Hospitalist Progress Note ---
Date of Service September 13, 2024 Assessment & Plan (1) Small bowel obstruction: Plan: She underwent exploratory laparotomy with lysis of adhesions on September 11. Postoperative day #2. Appreciate general surgery consultation and recommendations. The NG tube was removed today, September 13. Clear liquids will be started tomorrow. (2) Postoperative ileus: Plan: Resolving. NG tube removed today per surgery, September 13. Continue ambulation. (3) Hypothyroidism: Plan: Stable. Resume oral replacement therapy tomorrow, September 14, when taking p.o. (4) Asthma: Plan: Stable. DuoNebs as needed (5) Status post gastric bypass for obesity: Plan: Also history of cholecystectomy and total abdominal hysterectomy. Likely because of adhesions causing small bowel obstruction. Plan Anticipate eventual discharge to home within the next 2 to 3 days. Admission and Anticipated Discharge Date Admission Date: September 10, 2024 Subjective Alert and oriented. No new problems. Fortunately, the NG tube has been removed by surgery. Clear liquids will start tomorrow, September 14. She is ambulating. Postoperative day #2 after exploratory laparotomy with lysis of adhesions. Review of Systems 2 Review of Systems: Constitutionalno fever or chills ENTno blurred vision, no double vision, no epistaxis, no sore throat Respiratoryno cough, no wheezing, no shortness of breath Cardiacno palpitations, no chest pain, no syncope GInow passing some flatus. No bowel movements. No vomiting. NG tube has been removed. No melena, no hematochezia GUno urinary retention, no urinary incontinence, no dysuria, no hematuria Musculoskeletalno joint pain, no muscle tenderness Skinno bruising, no rashes, no pruritus Neurono isolated weakness, no paresthesia, no weakness Psychno depression, no anxiety Physical Exam 2 Physical Exam: General-alert and oriented x3, no fever, no chills HEENT-head atraumatic and normocephalic, pupils equal and reactive to light, extraocular muscles intact. NG tube has been removed Neck-no lymphadenopathy or thyromegaly, trachea midline Chest-clear to auscultation. No rales, wheezing or rhonchi Cardiac-regular rate and rhythm, normal S1 and S2 Abdomen-mildly distended. Bowel sounds are hypoactive but present . Extremities- no cyanosis, clubbing, or edema Neuro-cranial nerves II through XII intact, motor and sensory function within normal limits, strength symmetrical, no focal deficits Psych-normal affect, normal mood Results & Data Results & Data Vital Signs (Past 12 Hours) Vital Signs Temp Pulse Resp BP Pulse Ox O2 Del Method 09/13/24 09:35 Room Air 09/13/24 07:24 36.8 C 63 16 121/77 91 Room Air Laboratory Results 09/13/24 05:57 09/13/24 05:59 PG Care Time/CCT Total # of Minutes Spent Total Time Spent with Patient: Total time spent is greater than 50% in coordination of care (as documented) at patient's floor/unit and/or counseling patient: Coding Level of Care Code 68094 SUB INP/OBS CARE 2/35MIN Diagnoses Small bowel obstruction K56.609 Postoperative ileus K91.89; K56.7 Hypothyroidism E03.9 Asthma J45.909 Status post gastric bypass for obesity Z98.84
[2024-09-14 06:41] LABS: Basophils # (auto) 0.03 K/uL (0.00-0.20); Basophils % (auto) 0.4 %; Eosinophils % (auto) 2.9 %; Hematocrit (blood only) 32.2 % (37.0-47.0); Hemoglobin 10.8 g/dl (12.0-16.0); Immature Granulocytes # (auto) 0.01 K/uL (0.01-0.20); Immature Granulocytes % (auto) 0.1 %; Lymphocytes # (auto) 1.55 K/uL (1.20-3.40); Lymphocytes % (auto) 22.3 %; Mean Corpuscular Hgb Conc 33.5 g/dL (32.0-36.0); Mean Corpuscular Volume 92.5 fL (80.0-100.0); Monocytes # (auto) 0.73 K/uL (0.11-0.59); Monocytes % (auto) 10.5 %; Neutrophils # (auto) 4.43 K/uL (1.40-6.50); Neutrophils % (auto) 63.8 %; Platelet Count 211 K/uL (130-400); RDW Coefficient of Variation 12.1 % (11.5-14.5); RDW Standard Deviation 41.3 fL (36.4-46.3); Red Blood Count 3.48 M/uL (4.20-5.40); White Blood Count 6.95 K/ul (4.8-10.8)
[2024-09-14 07:04] LABS: BUN Creatinine Ratio 30.4 (10-20); Calcium 8.5 mg/dl (8.6-10.3); Creatinine Clr Calc Pharmacy 114.1 ml/min; Potassium 4.3 mmol/L (3.5-5.1)
[2024-09-14] MEDS: MoRPHine SULFATE 2 MG/ML CARP IV PRN (07:27)
--- NOTE | 2024-09-14 10:26 | Surgery Progress Note ---
Date of Service September 14, 2024 Assessment & Plan (1) Small bowel obstruction: Plan: steady progress con't liquids ambulate pain controlled Admission and Anticipated Discharge Date Admission Date: September 10, 2024 Subjective pain controlled a little flatus clear liquids Review of Systems Constitutional: no fever and no chills Respiratory: no cough and no dyspnea Cardiovascular: no chest pain Gastrointestinal: + abdominal pain and + change in bowel h abits; no nausea and no vomiting Genitourinary: no dysuria Neurologic: no localized weakness Psychiatric: no behavioral changes Physical Exam Constitutional: WD/WN, vitals as above Respiratory: normal respiratory effort, lungs clear to auscultation Cardiovascular: RRR, no murmur, no edema Gastrointestinal (Abdomen): Inspection/Auscultation: abdomen normal to inspection, + abdomen distended and normal bowel sounds Percussion/Palpation: + abdomen tender and abdomen soft; no guarding and abdomen not rigid Skin: no rashes, warm and dry Results & Data Vital Signs (Past 12 Hours) Vital Signs Temp Pulse Resp BP Pulse Ox O2 Del Method 09/14/24 07:14 36.8 C 58 L 16 123/76 94 Room Air
--- NOTE | 2024-09-14 11:17 | Hospitalist Progress Note ---
Date of Service September 14, 2024 Assessment & Plan (1) Small bowel obstruction: Plan: She underwent exploratory laparotomy with lysis of adhesions on September 11. Postoperative day #3. Appreciate general surgery consultation and recommendations. The NG tube was removed on September 13. Clear liquids on have been started today, September 14. Will advance as tolerated. (2) Postoperative ileus: Plan: Resolving. NG tube removed on September 13 per surgery. Continue ambulation. (3) Hypothyroidism: Plan: Stable. Resume oral replacement today, September 14 (4) Asthma: Plan: Stable. DuoNebs as needed (5) Status post gastric bypass for obesity: Plan: Also history of cholecystectomy and total abdominal hysterectomy. Likely because of adhesions causing small bowel obstruction. Plan Anticipate eventual discharge to home within the next day or 2 Admission and Anticipated Discharge Date Admission Date: September 10, 2024 Subjective Alert and oriented. is at the bedside. She states she is now passing some gas. Clear liquids have been started. She is ambulating. IV fluids decreased. Postoperative day #3 after exploratory laparotomy with lysis of adhesions done on September 11. Review of Systems 2 Review of Systems: Constitutionalno fever or chills ENTno blurred vision, no double vision, no epistaxis, no sore throat Respiratoryno cough, no wheezing, no shortness of breath Cardiacno palpitations, no chest pain, no syncope GInow passing some flatus. No bowel movements. No vomiting. NG tube has been removed. No melena, no hematochezia GUno urinary retention, no urinary incontinence, no dysuria, no hematuria Musculoskeletalno joint pain, no muscle tenderness Skinno bruising, no rashes, no pruritus Neurono isolated weakness, no paresthesia, no weakness Psychno depression, no anxiety Physical Exam 2 Physical Exam: General-alert and oriented x3, no fever, no chills HEENT-head atraumatic and normocephalic, pupils equal and reactive to light, extraocular muscles intact. NG tube has been removed Neck-no lymphadenopathy or thyromegaly, trachea midline Chest-clear to auscultation. No rales, wheezing or rhonchi Cardiac-regular rate and rhythm, normal S1 and S2 Abdomen-mildly distended. Bowel sounds are hypoactive but present . Extremities- no cyanosis, clubbing, or edema Neuro-cranial nerves II through XII intact, motor and sensory function within normal limits, strength symmetrical, no focal deficits Psych-normal affect, normal mood Results & Data Results & Data Vital Signs (Past 12 Hours) Vital Signs Temp Pulse Resp BP Pulse Ox O2 Del Method 09/14/24 07:14 36.8 C 58 L 16 123/76 94 Room Air Laboratory Results 09/14/24 06:02 09/14/24 06:02 PG Care Time/CCT Total # of Minutes Spent Total Time Spent with Patient: Total time spent is greater than 50% in coordination of care (as documented) at patient's floor/unit and/or counseling patient: Coding Level of Care Code 38134 SUB INP/OBS CARE 3/50MIN Diagnoses Small bowel obstruction K56.609 Postoperative ileus K91.89; K56.7 Hypothyroidism E03.9 Asthma J45.909 Status post gastric bypass for obesity Z98.84
[2024-09-14] MEDS: LEVOTHYROXINE SODIUM 175 MCG TABLET PO SCH (11:30)
[2024-09-15 06:22] LABS: Basophils # (auto) 0.03 K/uL (0.00-0.20); Basophils % (auto) 0.5 %; Eosinophils % (auto) 3.3 %; Hemoglobin 11.7 g/dl (12.0-16.0); Immature Granulocytes # (auto) 0.01 K/uL (0.01-0.20); Immature Granulocytes % (auto) 0.2 %; Lymphocytes # (auto) 1.34 K/uL (1.20-3.40); Lymphocytes % (auto) 22.2 %; Mean Corpuscular Hemoglobin 30.7 pg (25.0-34.0); Mean Corpuscular Hgb Conc 34.4 g/dL (32.0-36.0); Mean Corpuscular Volume 89.2 fL (80.0-100.0); Monocytes # (auto) 0.88 K/uL (0.11-0.59); Monocytes % (auto) 14.6 %; Neutrophils # (auto) 3.57 K/uL (1.40-6.50); Neutrophils % (auto) 59.2 %; Platelet Count 242 K/uL (130-400); RDW Coefficient of Variation 12.2 % (11.5-14.5); RDW Standard Deviation 38.9 fL (36.4-46.3); Red Blood Count 3.81 M/uL (4.20-5.40); White Blood Count 6.03 K/ul (4.8-10.8)
[2024-09-15 06:42] LABS: BUN Creatinine Ratio 14.8 (10-20); Calcium 8.7 mg/dl (8.6-10.3); Creatinine Clr Calc Pharmacy 118.4 ml/min; Potassium 3.9 mmol/L (3.5-5.1)
--- NOTE | 2024-09-15 10:53 | Surgery Progress Note ---
Date of Service September 15, 2024 Assessment & Plan (1) Small bowel obstruction: Plan: good progress agree with fulls switch to oral pain meds soon Admission and Anticipated Discharge Date Admission Date: September 10, 2024 Subjective pain controlled doing well with po clears ambulating better Review of Systems Constitutional: no fever and no chills Respiratory: no cough and no dyspnea Cardiovascular: no chest pain Gastrointestinal: + abdominal pain; no nausea, no vomiting and no change in bowel habits Genitourinary: no dysuria Neurologic: no localized weakness Psychiatric: no behavioral changes Physical Exam Constitutional: WD/WN, vitals as above Gastrointestinal (Abdomen): Inspection/Auscultation: abdomen normal to inspection; abdomen not distended Percussion/Palpation: + abdomen tender and abdomen soft Results & Data Vital Signs (Past 12 Hours) Vital Signs Temp Pulse Resp BP Pulse Ox O2 Del Method 09/15/24 07:31 36.8 C 55 L 16 128/83 94 Room Air
--- NOTE | 2024-09-15 15:06 | Hospitalist Progress Note ---
Date of Service September 15, 2024 Assessment & Plan (1) Small bowel obstruction: Plan: She underwent exploratory laparotomy with lysis of adhesions on September 11. Postoperative day #4. Appreciate general surgery consultation and recommendations. The NG tube was removed on September 13. Clear liquids were started yesterday and well-tolerated. Diet advanced to full liquids. Parenteral pain control measures switched to oxycodone. (2) Postoperative ileus: Plan: Resolving. NG tube removed on September 13 per surgery. Continue ambulation. (3) Hypothyroidism: Plan: Stable. Oral replacement was restarted on September 14 (4) Asthma: Plan: Stable. DuoNebs as needed (5) Status post gastric bypass for obesity: Plan: Also history of cholecystectomy and total abdominal hysterectomy. Likely because of adhesions causing small bowel obstruction. Plan Hopefully home tomorrow, September 16 Admission and Anticipated Discharge Date Admission Date: September 10, 2024 Subjective Alert and oriented. She is tolerating clear liquids and ambulating well. Diet advanced to full liquids. Parenteral pain control measures switched to as needed oxycodone. Surgery entry noted Review of Systems 2 Review of Systems: Constitutionalno fever or chills ENTno blurred vision, no double vision, no epistaxis, no sore throat Respiratoryno cough, no wheezing, no shortness of breath Cardiacno palpitations, no chest pain, no syncope GInow passing some flatus. No bowel movements. No vomiting. NG tube has been removed. No melena, no hematochezia GUno urinary retention, no urinary incontinence, no dysuria, no hematuria Musculoskeletalno joint pain, no muscle tenderness Skinno bruising, no rashes, no pruritus Neurono isolated weakness, no paresthesia, no weakness Psychno depression, no anxiety Physical Exam 2 Physical Exam: General-alert and oriented x3, no fever, no chills HEENT-head atraumatic and normocephalic, pupils equal and reactive to light, extraocular muscles intact. NG tube has been removed Neck-no lymphadenopathy or thyromegaly, trachea midline Chest-clear to auscultation. No rales, wheezing or rhonchi Cardiac-regular rate and rhythm, normal S1 and S2 Abdomen-mildly distended. Bowel sounds are hypoactive but present . Extremities- no cyanosis, clubbing, or edema Neuro-cranial nerves II through XII intact, motor and sensory function within normal limits, strength symmetrical, no focal deficits Psych-normal affect, normal mood Results & Data Results & Data Vital Signs (Past 12 Hours) Vital Signs Temp Pulse Pulse Resp BP Pulse Ox O2 Del Method 09/15/24 14:08 36.9 C 85 16 139/80 98 Room Air 09/15/24 07:31 36.8 C 55 L 16 128/83 94 Room Air Laboratory Results 09/15/24 05:40 09/15/24 05:40 PG Care Time/CCT Total # of Minutes Spent Total Time Spent with Patient: Total time spent is greater than 50% in coordination of care (as documented) at patient's floor/unit and/or counseling patient: Coding Level of Care Code 69970 SUB INP/OBS CARE 2/35MIN Diagnoses Small bowel obstruction K56.609 Postoperative ileus K91.89; K56.7 Hypothyroidism E03.9 Asthma J45.909 Status post gastric bypass for obesity Z98.84
[2024-09-15] MEDS: oxyCODONE HCL IR 5 MG TAB (IMMEDIATE RELEASE) PO PRN (16:57)
[2024-09-16] MEDS: ACETAMINOPHEN 325 MG TAB PO PRN (06:27)
[2024-09-16 07:31] LABS: Basophils # (auto) 0.03 K/uL (0.00-0.20); Basophils % (auto) 0.5 %; Eosinophils # (auto) 0.22 K/uL (0.00-0.50); Hematocrit (blood only) 30.8 % (37.0-47.0); Hemoglobin 10.8 g/dl (12.0-16.0); Immature Granulocytes # (auto) 0.02 K/uL (0.01-0.20); Immature Granulocytes % (auto) 0.4 %; Lymphocytes # (auto) 1.39 K/uL (1.20-3.40); Lymphocytes % (auto) 25.1 %; Mean Corpuscular Hgb Conc 35.1 g/dL (32.0-36.0); Mean Corpuscular Volume 88.5 fL (80.0-100.0); Mean Platelet Volume 11.1 fL (9.4-12.4); Monocytes # (auto) 0.74 K/uL (0.11-0.59); Monocytes % (auto) 13.4 %; Neutrophils # (auto) 3.14 K/uL (1.40-6.50); Neutrophils % (auto) 56.6 %; Platelet Count 247 K/uL (130-400); RDW Coefficient of Variation 12.1 % (11.5-14.5); RDW Standard Deviation 38.9 fL (36.4-46.3); Red Blood Count 3.48 M/uL (4.20-5.40); White Blood Count 5.54 K/ul (4.8-10.8)
[2024-09-16 07:49] LABS: Albumin Globulin Ratio 1.2 (0.9-2); BUN Creatinine Ratio 9.1 (10-20); Bilirubin,Total 0.7 mg/dl (0.2-1.0); Calcium 8.6 mg/dl (8.6-10.3); Creatinine Clr Calc Pharmacy 116.2 ml/min; Globulin 2.5 gm/dl (2.5-4.0); Potassium 3.8 mmol/L (3.5-5.1); Total Protein 5.5 gm/dl (6.0-8.3)
[2024-09-16 08:05] VITALS: RESP 18
--- NOTE | 2024-09-16 10:19 | Surgery Progress Note ---
Date of Service September 16, 2024 Assessment & Plan (1) Small bowel obstruction: Plan: POD 5 Exploratory Laparotomy, Lysis of Adhesions with Dr Locke tolerating full liquids, adv to low fiber having bms and passing flatus some nausea with oral oxy last night pt can be d/c with oral Zofran to take with pain medication if needed evin midline CDI no s/s infection noted VSS WBC wnl if tolerating low fiber may be discharge from gen surg standpoint f/u with Dr Hawkins o/p 2 weeks Admission and Anticipated Discharge Date Admission Date: September 10, 2024 Subjective tolerating fulls no n/v denies f/c Review of Systems Constitutional: no fever and no chills Respiratory: no dyspnea Cardiovascular: no chest pain Gastrointestinal: + abdominal pain; no nausea and no vomit ing Physical Exam Constitutional: cooperative and comfortable; no acute distress Respiratory: normal respiratory effort; no respiratory distress Cardiovascular: Rate/Rhythm: regular rate Gastrointestinal (Abdomen): Inspection/Auscultation: + abdominal surgical incision (CDI evin ); abdomen not distended Percussion/Palpation: abdomen soft Results & Data Vital Signs (Past 12 Hours) Vital Signs Temp Pulse Resp BP Pulse Ox O2 Del Method 09/16/24 08:04 97.9 F 72 18 133/76 98 Room Air Results CBC w Diff Results: RBC 3.48 M/uL (4.20-5.40) L 09/16/24 WBC 5.54 K/ul (4.8-10.8) 09/16/24 Hgb 10.8 g/dl (12.0-16.0) L 09/16/24 Hct 30.8 % (37.0-47.0) L 09/16/24 MCV 88.5 fL (80.0-100.0) 09/16/24 MCH 31.0 pg (25.0-34.0) 09/16/24 MCHC 35.1 g/dL (32.0-36.0) 09/16/24 RDW Standard Deviation 38.9 fL (36.4-46.3) 09/16/24 RDW Coefficient of Variation 12.1 % (11.5-14.5) 09/16/24 Plt Count 247 K/uL (130-400) 09/16/24 MPV 11.1 fL (9.4-12.4) 09/16/24 Neutrophils (%) (Auto) 56.6 % 09/16/24 Lymphocytes (%) (Auto) 25.1 % 09/16/24 Monocytes # (Auto) 0.74 K/uL (0.11-0.59) H 09/16/24 Eosinophils # (Auto) 0.22 K/uL (0.00-0.50) 09/16/24 Immature Granulocyte % (Auto) 0.4 % 09/16/24 Neutrophils # (Auto) 3.14 K/uL (1.40-6.50) 09/16/24 Lymphocytes # (Auto) 1.39 K/uL (1.20-3.40) 09/16/24 Monocytes # (Auto) 0.74 K/uL (0.11-0.59) H 09/16/24 Eosinophils # (Auto) 0.22 K/uL (0.00-0.50) 09/16/24 Basophils # (Auto) 0.03 K/uL (0.00-0.20) 09/16/24 Immature Granulocyte # (Auto) 0.02 K/uL (0.01-0.20) 4 PG Care Time/CCT Total # of Minutes Spent Total Time Spent with Patient: Total time spent is greater than 50% in coordination of care (as documented) at patient's floor/unit and/or counseling patient: Coding Level of Care Code 76048 Post Operative Follow-Up Diagnoses Small bowel obstruction K56.609
[2024-09-16 15:14] VITALS: BP 138/86; PULSE 65; TEMP 98.4; O2SAT 97
--- NOTE | 2024-09-16 15:26 | Discharge Summary ---
Discharge Summary Date of Service September 16, 2024 Principal Dx & Hospital Course #1 = Principal Diagnosis (1) Small bowel obstruction: She underwent exploratory laparotomy with lysis of adhesions on September 11. Doing well now after a post-op ileus-now tolerating low fiber diet, moving bowels, passing flatus Had some nausea with taking oxycodone--> can take at home with Zofran APAP prn milder pain Stable for dc to home and f/u with Surgery in 7-10 days (2) Hypothyroidism: Stable. COntinue Oral replacement (3) Asthma: Stable. DuoNebs as needed (4) Status post gastric bypass for obesity: Also history of cholecystectomy and total abdominal hysterectomy. Likely because of adhesions causing small bowel obstruction. f/u with PCP for routine nutritional monitoring including Fe and B12 levels given mild anemia Plan DVT proph-Lovenox Dispo-dc to home Notes For Next Care Provider None Medication Changes From Visit Added oxycodone prn, Zofran prn Admission HPI Per Admitting Provider 64-year-old female presenting for worsening abdominal pain x 14+ hours. ED course: CBC grossly WNL with neutrophils 8.46, CMP grossly WNL with exception of glucose 152, pending lactate; UA with 1+ protein, trace ketones, trace LE, and RBC, but no bacteria present.; CTAP revealing findings consistent with moderate to high-grade small bowel obstruction discrete transition point in the terminal ileum, multiple loops of moderately dilated fluid-filled mid to distal ileum with small bowel feces sign, associated ascites, no bowel wall thickening, no pneumatosis, free air or portal venous gas, status post Terrence-en-Y gastric bypass.; Provided with Zofran, morphine, and IVF in ED. Patient is a 64-year-old female PMHx s/p Terrence-en-Y gastric bypass (2018), asthma, hypothyroidism, and history of migraines presenting for worsening abdominal pain. Patient states that the pain started at approximately 1930 the day prior to arrival and has continued to worsen. It came on as a sudden onset and has continued to worsen over that time. Pain at its worst is a 9 out of 10 on the pain scale, at time of visit it was a 7-8 out of 10, mainly localized to the lower abdomen, but has become generalized. Complaining of nausea/vomiting without blood in the vomit. Has not reported fever and no blood in stool. Never had this happen before. Please see Dr. Tamez's attestation for adjustments/additions to treatment plan. Discharge Exam Constitutional WD/WN, vitals as above Respiratory normal respiratory effort, lungs clear to auscultation Cardiovascular RRR, no murmur, no edema Gastrointestinal (Abdomen) Inspection/Auscultation: normal bowel sounds; + abdomen abnormal to inspection (abdominal binder in place) Percussion/Palpation: + abdomen tender (mild, no guarding) and abdomen soft Psychiatric A+Ox3, euthymic affect Discharge Plan Discharge Items Patient Disposition: Home - Self-Care Reason For Visit: SBO Discharge Diagnosis: Small bowel obstruction Condition on Discharge: Good Activity: As commented below Lifting: No more than 10 pounds Bathing Comment: you can shower , no soaking in pools/bath for 2 weeks Exercise/Sports: Wait until after follow-up appointment Non-emergency contact: Primary Care Provider and Surgeon Call non-emergency contact if: you have any medication questions, your symptoms worsen, your pain is not controlled, your temperature is above 101, your wound has increased redness, your wound has increased drainage and your wound pain has increased Follow-up/Referrals: Toni Locke MD [Physician] - (Please call to schedule a follow up appointment in 7-10 days) Nikki Phan MD [Primary Care Provider] - (Follow up within 1-2 weeks) Diet: Low Fiber Addtl Attending Provider Instructions: You have evin that will need to come out at your follow up appointment. Please keep surgical area clean and dry. You can apply gauze and tape for comfort, Change your dressing daily. You can continue to wear your abd binder for comfort. Pending Studies at Discharge: No Stand-Alone Forms: My [facility] [employer], Smoking Cessation Medications and DC Order Prescriptions: New oxycodone 5 mg Tablet 5 mg PO Q6H PRN (Reason: moderate-severe pain) Qty: 10 0RF ondansetron 4 mg tablet,disintegrating 4 mg PO DAILY PRN (Reason: nausea and vomiting) Qty: 10 0RF Continued albuterol sulfate 90 mcg/actuation HFA aerosol inhaler 2 puffs INH Q4H PRN (Reason: sob) Rx Instructions: no fill history available cetirizine [Zyrtec] 10 mg tablet 20 mg PO BID PRN (Reason: allergies) Rx Instructions: otc naltrexone 50 mg tablet 25 mg PO BID cyanocobalamin (vitamin B-12) 1,000 mcg/mL solution 1,000 mcg IM Q3MO bupropion HCl 150 mg tablet sustained-release 12 hr See Rx Instructions PO BID Qty: 270 3RF Rx Instructions: 300mg in AM, 150mg in PM. Fill history 07/07 has 90 day #180 levothyroxine 175 mcg tablet 175 mcg PO DAILY Rx Instructions: TAKE 1 TABLET BY MOUTH DAILY rizatriptan 10 mg tablet,disintegrating 10 mg PO UD PRN (Reason: Migraine Headache) Rx Instructions: TAKE 1 TABLET BY MOUTH EVERY 2 HOURS NEEDED FOR MIGRAINE HEADACHE fluticasone propionate 50 mcg/actuation spray,suspension 2 spray intranasal DAILY Rx Instructions: INHALE 2 SPRAY DAILY INTO EACH NOSTRIL Discharge Orders: Discharge Order (Routine); Ordered 09/16/24 Ordered By: Karis Tavares Admission Data Admit Date/Time: 09/10/24 08:53 Attending Provider: Karis Tavares Admit Provider: John Tamez Primary Care Provider: Nikki Phan Other Providers: John Tamez Hospital Stay Data Consultations 09/10/24 08:36 ED Decision to Admit Stat Procedures Performed Operation Date: 09/11/24 09:50 Actual Procedures p Exploratory Laparotomy, Lysis of Adhesions(Not Applicable) - Toni Locke MD Diagnostic Imagining Performed 09/10/24 07:17 CT abd pelvis IV con only Stat Pending Results Patient Have Any Pending Studies at Discharge: No Discharge Instructions Given to Patient (Per Discharging Provider) You have evin that will need to come out at your follow up appointment. Please keep surgical area clean and dry. You can apply gauze and tape for comfort, Change your dressing daily. You can continue to wear your abd binder for comfort. Total Time Total Time Spent Total Time Spent (In Minutes): 35 min Total Time Includes: Examination of the Patient, Discharge Planning, Medication Reconciliation and Communication With Other Providers (Surgeon) Coding Level of Care Code 58156 INP/OBS DISCH >30 MIN Diagnoses Small bowel obstruction K56.609 Hypothyroidism E03.9 Asthma J45.909 Status post gastric bypass for obesity Z98.84
--- NOTE | 2024-09-17 07:27 | Coding Query ---
Your help is needed for correct coding of this account; please clarify if the patients Post-operative Ileus was: (x ) expected out of the surgery ( ) unexpected complication from the surgery ( )other please specify Thank you ADALID An [facility]
== END 2024-09-16 16:08 | disposition home or self-care (01) | DRG 336 ==
LOC: SUATTDRO → ED 07:04 → 3N 08:53 → SUATTDRO 08:53 → 3N 10:31